=== PATIENT | female | born 1985 | race Hispanic/Latino ===

== ENCOUNTER 2023-06-26 11:57 | Emergency (ER) | payer BC, OTHER ==
[~2023-06-26] VITALS: Ht 152.4 cm; Wt 63.5 kg
[2023-06-26 12:51] LABS: APPEARANCE,URINE CLOUDY (CLEAR); BILIRUBIN,URINE NEGATIVE (NEGATIVE); COLOR,URINE YELLOW (YELLOW); GLUCOSE, URINE (UA) NEGATIVE (NEGATIVE); KETONES,URINE NEGATIVE (NEGATIVE); LEUKOCYTE ESTERASE ,URINE NEGATIVE Leu/uL (NEGATIVE); NITRATE,URINE 2+ (NEGATIVE); OCCULT BLOOD,URINE NEGATIVE (NEGATIVE); PH,URINE 6.5 (5.0-8.0); PROTEIN,URINE 10 mg/dL (NEGATIVE)
[2023-06-26 12:58] LABS: ADD UA MICROSCOPIC YES
[2023-06-26 13:00] LABS: BACTERIA,URINE MANY /HPF (None Seen); MUCUS,URINE RARE LPF (None Seen); RBC,URINE 0-1 /HPF (0-1); SQUAMOUS EPITHELIAL CELL,UR MANY /HPF (0-2)
[2023-06-26 13:10] LABS: BASOPHILS # (AUTO) 0.06 K/uL (0.00-0.20); BASOPHILS % (AUTO) 0.8 % (0.0-5.0); EOSINOPHILS # (AUTO) 0.14 K/uL (0.00-0.70); EOSINOPHILS % (AUTO) 1.9 % (0.0-8.0); HEMATOCRIT 36.7 % (36-48); IMMATURE GRANULOCYTE ABSOLUTE 0.02 K/uL (0-1); LYMPHOCYTES # (AUTO) 3.1 K/uL (1.0-4.8); LYMPHOCYTES % (AUTO) 40.9 % (21.0-51.0); MEAN CORPUSCULAR HEMOGLOBIN 31.8 pg (27.0-33.0); MEAN CORPUSCULAR HGB CONC 35.1 g/dL (32.0-36.0); MEAN CORPUSCULAR VOLUME 90.4 fL (79-99); MONOCYTES # (AUTO) 0.5 K/uL (0.1-1.0); MONOCYTES % (AUTO) 6.1 % (3.0-13.0); NEUTROPHILS # (AUTO) 3.8 K/uL (1.8-7.7); PLATELET COUNT (AUTO) 132 K/uL (130-400); RED BLOOD CELL COUNT(AUTO) 4.06 MIL/uL (4.00-5.50); RED CELL DISTRIBUTION WIDTH 13.9 % (11.0-15.5); WHITE BLOOD COUNT (AUTO) 7.5 K/uL (4.8-10.8)
[2023-06-26] MEDS: MORPHINE 4 MG SYG IVP ONE (13:15)
[2023-06-26] MEDS: PROMETHAZINE HCL 25 MG/ML 1ML AMPULE IM ONE (13:16)
[2023-06-26 13:24] LABS: CREATININE 0.7 mg/dL (0.5-1.0); POTASSIUM 3.8 mmol/L (3.5-5.1)
[2023-06-26 13:28] LABS: TOTAL PROTEIN, SERUM 7.4 g/dL (6.0-8.3)
[2023-06-26 13:30] LABS: INR <= 0.93 (0.85-1.15); PROTHROMBIN TIME 10.9 SEC (9.6-11.6)
[2023-06-26 13:31] LABS: PARTIAL THROMBOPLASTIN TIME 27.1 SEC (26.3-35.5)
[2023-06-26 15:49] VITALS: BP 106/74; PULSE 65; RESP 14; O2SAT 98
== END 2023-06-26 17:05 | disposition home or self-care (01) ==
LOC: EDH 11:57
DX: R10.11 Right upper quadrant pain (principal); R11.2 Nausea with vomiting, unspecified; F41.9 Anxiety disorder, unspecified; Z90.49 Acquired absence of other specified parts of digestive tract; Z90.710 Acquired absence of both cervix and uterus; Z88.5 Allergy status to narcotic agent; Z88.8 Allergy status to other drugs, medicaments and biological substances; Z98.890 Other specified postprocedural states
CPT/HCPCS: 99285; 74176; 96374; 82248; 80053; 83690; 85025; 85610; 85730; 87077; 87088; 87186; 81001; 36415; 96372; J2550; J2270

== ENCOUNTER 2023-06-28 15:46 | Inpatient (IN) | payer OTHER ==
[~2023-06-28] VITALS: Ht 152.4 cm; Wt 62.1 kg
[2023-06-28] MEDS ORDERED: ACETAMINOPHEN 325 MG TAB PO PRN ×2 (17:30)
[2023-06-28 17:56] LABS: BASOPHILS # (AUTO) 0.05 K/uL (0.00-0.20); BASOPHILS % (AUTO) 0.7 % (0.0-5.0); EOSINOPHILS # (AUTO) 0.14 K/uL (0.00-0.70); IMMATURE GRANULOCYTE ABSOLUTE 0.02 K/uL (0-1); LYMPHOCYTES # (AUTO) 3.1 K/uL (1.0-4.8); LYMPHOCYTES % (AUTO) 43.1 % (21.0-51.0); MEAN CORPUSCULAR HEMOGLOBIN 31.4 pg (27.0-33.0); MEAN CORPUSCULAR VOLUME 89.8 fL (79-99); MONOCYTES # (AUTO) 0.4 K/uL (0.1-1.0); MONOCYTES % (AUTO) 4.9 % (3.0-13.0); NEUTROPHILS # (AUTO) 3.5 K/uL (1.8-7.7); PLATELET COUNT (AUTO) 141 K/uL (130-400); RED BLOOD CELL COUNT(AUTO) 4.23 MIL/uL (4.00-5.50); RED CELL DISTRIBUTION WIDTH 13.9 % (11.0-15.5); WHITE BLOOD COUNT (AUTO) 7.2 K/uL (4.8-10.8)
[2023-06-28 18:17] LABS: ALBUMIN 3.2 g/dL (3.5-5.0); BILIRUBIN,TOTAL 1.3 mg/dL (0.2-1.0); CREATININE 0.7 mg/dL (0.5-1.0); POTASSIUM 3.7 mmol/L (3.5-5.1)
[2023-06-28] MEDS: 0.9%NACL 1000ML 1,000 ML IV SCH (18:17)
[2023-06-28] MEDS: PROMETHAZINE HCL 25 MG/ML 1ML AMPULE IM PRN (18:18)
[2023-06-28] MEDS: HYDROMORPHONE 0.5 MG SYG (0.5MG/0.5ML) IVP PRN (18:19)
[2023-06-28 18:42] LABS: INR 0.94 (0.85-1.15); PROTHROMBIN TIME 11.1 SEC (9.6-11.6)
[2023-06-28 18:43] LABS: PARTIAL THROMBOPLASTIN TIME 25.5 SEC (26.3-35.5)
[2023-06-28] MEDS: CEFTRIAXONE 1G VIAL IVPB SCH (18:58)
[2023-06-28 19:02] LABS: ERYTHROCYTE SEDIMENTATION RATE 52 MM/HR (0-20)
[2023-06-28] MEDS ORDERED: IOHEXOL-350 75 ML VIAL IV ONE (19:08)
[2023-06-28] MEDS: DiphenhydrAMINE HCL 50 MG/ML VIAL IV PRN (19:57)
[2023-06-28 21:15] VITALS: BP 132/87; PULSE 72; RESP 17
[2023-06-28] MEDS: 1/2 NS 1000ML 1,000 ML IV SCH (21:47)
[2023-06-28] MEDS: PANTOPRAZOLE 40 MG/VIAL IVP SCH (21:47)
[2023-06-28] MEDS ORDERED: PANT40TA PO (23:18)
[2023-06-28] MEDS ORDERED: ZOLP10TA2 PO (23:18)
[2023-06-28] MEDS ORDERED: ALPR1TAB7 PO (23:18)
[2023-06-28] MEDS ORDERED: PROM12.513 PO (23:18)
[2023-06-28] MEDS ORDERED: DIAZ2TAB PO (23:18)
[2023-06-28] MEDS ORDERED: TAMS-1 PO (23:18)
[2023-06-28] MEDS ORDERED: HYDR-4060 PO (23:18)
[2023-06-28] MEDS ORDERED: OXYB5TAB20 PO (23:18)
[2023-06-29] VITALS (23 sets, daily range): BP systolic 102–137; BP diastolic 55–89; PULSE 66–94; RESP 15–26; O2SAT 97
[2023-06-29 03:55] LABS: APPEARANCE,URINE CLEAR (CLEAR); BILIRUBIN,URINE NEGATIVE (NEGATIVE); COLOR,URINE LIGHT-YELLOW (YELLOW); GLUCOSE, URINE (UA) NEGATIVE (NEGATIVE); KETONES,URINE NEGATIVE (NEGATIVE); LEUKOCYTE ESTERASE ,URINE NEGATIVE Leu/uL (NEGATIVE); NITRATE,URINE NEGATIVE (NEGATIVE); OCCULT BLOOD,URINE NEGATIVE (NEGATIVE); PH,URINE 7.5 (5.0-8.0); PROTEIN,URINE NEGATIVE (NEGATIVE); UROBILINOGEN,URINE 0.2 mg/dL (0.2-1.0)
[2023-06-29 04:05] LABS: ADD UA MICROSCOPIC NO
[2023-06-29 04:06] LABS: BASOPHILS # (AUTO) 0.04 K/uL (0.00-0.20); BASOPHILS % (AUTO) 0.5 % (0.0-5.0); EOSINOPHILS # (AUTO) 0.16 K/uL (0.00-0.70); HEMATOCRIT 36.3 % (36-48); IMMATURE GRANULOCYTE ABSOLUTE 0.02 K/uL (0-1); LYMPHOCYTES % (AUTO) 50.2 % (21.0-51.0); MEAN CORPUSCULAR HGB CONC 34.4 g/dL (32.0-36.0); MEAN CORPUSCULAR VOLUME 92.8 fL (79-99); MONOCYTES # (AUTO) 0.5 K/uL (0.1-1.0); MONOCYTES % (AUTO) 5.8 % (3.0-13.0); NEUTROPHILS # (AUTO) 3.2 K/uL (1.8-7.7); NEUTROPHILS % (AUTO) 41.2 % (40.0-77.0); PLATELET COUNT (AUTO) 130 K/uL (130-400); RED BLOOD CELL COUNT(AUTO) 3.91 MIL/uL (4.00-5.50); RED CELL DISTRIBUTION WIDTH 13.8 % (11.0-15.5); WHITE BLOOD COUNT (AUTO) 7.9 K/uL (4.8-10.8)
[2023-06-29 04:28] LABS: ALBUMIN 2.8 g/dL (3.5-5.0); BILIRUBIN,TOTAL 1.3 mg/dL (0.2-1.0); CREATININE 0.7 mg/dL (0.5-1.0); POTASSIUM 3.7 mmol/L (3.5-5.1)
[2023-06-29] MEDS ORDERED: MAGNESIUM 2GM PREMIX 50ML 50 ML IV PRN (06:30)
[2023-06-29] MEDS ORDERED: POTASSIUM CHLORIDE 20MEQ/100ML 100 ML IV PRN (06:30)
[2023-06-29 07:18] LABS: INR 0.95 (0.85-1.15); PROTHROMBIN TIME 11.3 SEC (9.6-11.6)
[2023-06-29 07:19] LABS: PARTIAL THROMBOPLASTIN TIME 25.8 SEC (26.3-35.5)
[2023-06-29] MEDS ORDERED: PROPOFOL 10 MG/ML 20ML VIAL IV ONE (15:30)
[2023-06-30] VITALS (7 sets, daily range): BP systolic 100–139; BP diastolic 53–94; PULSE 77–95; RESP 16–18; O2SAT 97
[2023-06-30 04:59] LABS: BASOPHILS # (AUTO) 0.04 K/uL (0.00-0.20); BASOPHILS % (AUTO) 0.7 % (0.0-5.0); EOSINOPHILS # (AUTO) 0.13 K/uL (0.00-0.70); EOSINOPHILS % (AUTO) 2.1 % (0.0-8.0); HEMATOCRIT 33.1 % (36-48); IMMATURE GRANULOCYTE ABSOLUTE 0.02 K/uL (0-1); LYMPHOCYTES # (AUTO) 2.8 K/uL (1.0-4.8); LYMPHOCYTES % (AUTO) 46.2 % (21.0-51.0); MEAN CORPUSCULAR HEMOGLOBIN 31.9 pg (27.0-33.0); MEAN CORPUSCULAR HGB CONC 35.3 g/dL (32.0-36.0); MEAN CORPUSCULAR VOLUME 90.2 fL (79-99); MONOCYTES # (AUTO) 0.4 K/uL (0.1-1.0); MONOCYTES % (AUTO) 5.9 % (3.0-13.0); NEUTROPHILS # (AUTO) 2.7 K/uL (1.8-7.7); NEUTROPHILS % (AUTO) 44.8 % (40.0-77.0); PLATELET COUNT (AUTO) 111 K/uL (130-400); RED BLOOD CELL COUNT(AUTO) 3.67 MIL/uL (4.00-5.50); RED CELL DISTRIBUTION WIDTH 13.9 % (11.0-15.5); WHITE BLOOD COUNT (AUTO) 6.1 K/uL (4.8-10.8)
[2023-06-30 05:09] LABS: INR <= 0.93 (0.85-1.15)
[2023-06-30] MEDS ORDERED: TACR1 PO (05:16)
[2023-06-30] MEDS ORDERED: PRED-775 PO (05:16)
[2023-06-30] MEDS ORDERED: MYCO500T5 PO (05:16)
[2023-06-30] MEDS ORDERED: TACR.5 PO (05:16)
[2023-06-30 05:19] LABS: ALBUMIN 2.5 g/dL (3.5-5.0); CREATININE 0.7 mg/dL (0.5-1.0); POTASSIUM 3.5 mmol/L (3.5-5.1); TOTAL PROTEIN, SERUM 6.6 g/dL (6.0-8.3)
[2023-06-30] MEDS: POTASSIUM CHLORIDE 10% ELIXIR 20 MEQ/15 ML UDCUP PO PRN (06:38)
[2023-06-30] MEDS: TACROLIMUS 1 MG CAPSULE PO SCH (09:00)
[2023-06-30] MEDS: MYCOPHENOLATE MOFETIL 250 MG CAPSULE PO SCH (09:00)
[2023-06-30] MEDS: PREDNISONE 10 MG TABLET PO SCH (09:00)
[2023-06-30] MEDS: LORAZEPAM 2 MG/ML 1 ML VIAL IVP PRN (10:24)
[2023-06-30] MEDS ORDERED: GADOTERATE MEGLUMINE 10 MMOL/20 ML VIAL IV ONE (11:48)
[2023-06-30] MEDS: ZOLPIDEM TARTRATE 5 MG TAB PO SCH (20:18)
[2023-06-30] MEDS: TACROLIMUS 0.5 MG CAPSULE PO SCH (20:18)
[2023-06-30] MEDS: DIAZEPAM 2 MG TAB PO SCH (20:18)
[2023-07-01] VITALS (9 sets, daily range): BP systolic 102–128; BP diastolic 56–86; PULSE 71–96; RESP 14–18; O2SAT 95–97
[2023-07-02] VITALS (8 sets, daily range): BP systolic 119–152; BP diastolic 76–97; PULSE 85–108; RESP 17–20; O2SAT 98–99
[2023-07-02 05:20] LABS: BASOPHILS # (AUTO) 0.04 K/uL (0.00-0.20); BASOPHILS % (AUTO) 0.5 % (0.0-5.0); EOSINOPHILS # (AUTO) 0.17 K/uL (0.00-0.70); HEMATOCRIT 35.5 % (36-48); IMMATURE GRANULOCYTE ABSOLUTE 0.03 K/uL (0-1); LYMPHOCYTES # (AUTO) 4.3 K/uL (1.0-4.8); LYMPHOCYTES % (AUTO) 49.7 % (21.0-51.0); MEAN CORPUSCULAR HEMOGLOBIN 31.5 pg (27.0-33.0); MEAN CORPUSCULAR HGB CONC 34.6 g/dL (32.0-36.0); MONOCYTES # (AUTO) 0.5 K/uL (0.1-1.0); MONOCYTES % (AUTO) 6.2 % (3.0-13.0); NEUTROPHILS # (AUTO) 3.6 K/uL (1.8-7.7); NEUTROPHILS % (AUTO) 41.3 % (40.0-77.0); PLATELET COUNT (AUTO) 136 K/uL (130-400); RED CELL DISTRIBUTION WIDTH 13.8 % (11.0-15.5); WHITE BLOOD COUNT (AUTO) 8.6 K/uL (4.8-10.8)
[2023-07-02 05:44] LABS: ALBUMIN 2.8 g/dL (3.5-5.0); BILIRUBIN,TOTAL 0.9 mg/dL (0.2-1.0); CREATININE 0.6 mg/dL (0.5-1.0); MAGNESIUM 1.8 mg/dL (1.80-2.40); POTASSIUM 3.4 mmol/L (3.5-5.1); TOTAL PROTEIN, SERUM 7.3 g/dL (6.0-8.3)
[2023-07-02] MEDS ORDERED: POTASSIUM CHLORIDE 20MEQ/100ML 100 ML IV PRN (07:00)
[2023-07-02] MEDS ORDERED: POTASSIUM CHLORIDE 10% ELIXIR 20 MEQ/15 ML UDCUP PO PRN (07:00)
[2023-07-02] MEDS ORDERED: KCL 20 MEQ ERTAB PO PRN (07:00)
[2023-07-03] VITALS: BP 146/81; PULSE 94; RESP 19
[2023-07-03 03:32] LABS: HEMATOCRIT 37.2 % (36-48); MEAN CORPUSCULAR HGB CONC 34.4 g/dL (32.0-36.0); RED CELL DISTRIBUTION WIDTH 13.4 % (11.0-15.5); WHITE BLOOD COUNT (AUTO) 10.8 K/uL (4.8-10.8)
[2023-07-03 03:35] LABS: ALBUMIN 2.9 g/dL (3.5-5.0); BILIRUBIN,TOTAL 0.9 mg/dL (0.2-1.0); CREATININE 0.8 mg/dL (0.5-1.0); POTASSIUM 3.7 mmol/L (3.5-5.1); TOTAL PROTEIN, SERUM 7.5 g/dL (6.0-8.3)
[2023-07-03 04:00] VITALS: BP 139/89; PULSE 95; RESP 19
[2023-07-03] MEDS ORDERED: DIPHENHYDRAMINE HCL 25 MG CAPSULE PO PRN (07:30)
[2023-07-03 08:00] VITALS: BP 108/67; PULSE 75; RESP 19; O2SAT 99
== END 2023-07-03 10:10 | disposition home or self-care (01) | DRG 689 ==
LOC: EDH 15:46 → EDHIP 15:47 → 3DH 17:37
PROVIDERS: ADMIT Internal Medicine; ATTEND Internal Medicine
PROC: 0DB68ZX Excision of Stomach, Via Natural or Artificial Opening Endoscopic, Diagnostic (ICD-10-PCS; principal; 2023-06-29)
DX: N39.0 Urinary tract infection, site not specified (principal); K29.51 Unspecified chronic gastritis with bleeding; D84.821 Immunodeficiency due to drugs; Z94.4 Liver transplant status; E86.0 Dehydration; Z79.60 Long term (current) use of unspecified immunomodulators and immunosuppressants; Z90.710 Acquired absence of both cervix and uterus
CPT/HCPCS: 36415; 43239; 71045; 71260; 72197; 74177; 74183; 76700; 80053; 81003; 82150; 83605; 83690; 83735; 85025; 85027; 85610; 85651; 85730; 86140; 87040; 88305; 88312; 93005; C1894; C9113; G0378; J0696; J1170; J1200; J2060; J2550; J2704; J7507; J7512; J7517; Q9967; A4620; A9575; C1750; J3490

== ENCOUNTER 2024-01-29 03:42 | Observation (INO) | payer MEDICAID, OTHER ==
[~2024-01-29] VITALS: Ht 152.4 cm; Wt 63.5 kg
[~2024-01-29 03:42] MED LIST: ALPR1TAB7 PO; DIAZ2TAB PO; HYDR-4060 PO; MYCO500T5 PO; PANT40TA PO; PRED-775 PO; TACR.5 PO; TACR1 PO; ZOLP10TA2 PO
[2024-01-29 04:25] LABS: BASOPHILS # (AUTO) 0.05 K/uL (0.00-0.20); BASOPHILS % (AUTO) 0.7 % (0.0-5.0); EOSINOPHILS # (AUTO) 0.13 K/uL (0.00-0.70); EOSINOPHILS % (AUTO) 1.8 % (0.0-8.0); HEMATOCRIT 37.3 % (36-48); IMMATURE GRANULOCYTE ABSOLUTE 0.02 K/uL (0-1); LYMPHOCYTES # (AUTO) 1.9 K/uL (1.0-4.8); LYMPHOCYTES % (AUTO) 26.3 % (21.0-51.0); MEAN CORPUSCULAR HEMOGLOBIN 31.5 pg (27.0-33.0); MEAN CORPUSCULAR HGB CONC 34.9 g/dL (32.0-36.0); MEAN CORPUSCULAR VOLUME 90.3 fL (79-99); MONOCYTES # (AUTO) 0.4 K/uL (0.1-1.0); MONOCYTES % (AUTO) 5.2 % (3.0-13.0); NEUTROPHILS # (AUTO) 4.7 K/uL (1.8-7.7); NEUTROPHILS % (AUTO) 65.7 % (40.0-77.0); PLATELET COUNT (AUTO) 118 K/uL (130-400); RED BLOOD CELL COUNT(AUTO) 4.13 MIL/uL (4.00-5.50); RED CELL DISTRIBUTION WIDTH 12.8 % (11.0-15.5); WHITE BLOOD COUNT (AUTO) 7.1 K/uL (4.8-10.8)
[2024-01-29 04:31] LABS: ALBUMIN 3.1 g/dL (3.5-5.0); BILIRUBIN,DIRECT 0.6 mg/dL (0.0-0.3); BILIRUBIN,TOTAL 1.3 mg/dL (0.2-1.0); CREATININE 0.6 mg/dL (0.5-1.0); POTASSIUM 4.1 mmol/L (3.5-5.1); TOTAL PROTEIN, SERUM 7.1 g/dL (6.0-8.3)
[2024-01-29] MEDS: 0.9%NACL 1000ML 1,000 ML IV ONE (04:40)
[2024-01-29] MEDS: hydroMORPHone 0.5 MG SYG (0.5MG/0.5ML) IVP ONE (04:40)
[2024-01-29] MEDS: PANTOPrazole 40 MG/VIAL IVP ONE (04:41)
[2024-01-29] MEDS: PROMETHAZINE HCL 25 MG/ML 1ML AMPULE IM ONE (04:41)
[2024-01-29 04:50] LABS: INR 0.96 (0.85-1.15); PROTHROMBIN TIME 10.8 SEC (9.6-11.6)
--- NOTE | 2024-01-29 05:03 | ERN ---
ED Note History of Present Illness Stated Complaint: HEMATEMESIS, BLOODY STOOL ONSET YESTERDAY Chief Complaint: Bloody Stool Time Seen by MD: 03:44 Dictation: This is a 38-year-old female who came into the emergency room with a severe lower back pain radiating to the right lower quadrant area and also hematemesis. She reported also bloody stool that has been going on for the past 24 hours. No history of any fevers chills or rigors per please note that the patient has been on chronic antirejection medications for liver transplantation. She has received her original liver in 2008 and since last year she is thought to be chronic rejection. 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 I saw the picture on her cell phone of a small amount of bright red blood after emesis in the toilet at her home Temperature 96 pulse 72 respirations 16 blood pressure 128/81 with a pulse ox imetry of 97% on room air Allergies: Coded Allergies: ketorolac (Unverified Allergy, Unknown, 06/26/23) ondansetron (Unverified Allergy, Unknown, 06/26/23) tramadol (Unverified Allergy, Unknown, 06/26/23) Home Meds Reported Medications Mycophenolate Mofetil (Mycophenolate Mofetil) 500 Mg Tablet, 2 TAB PO BID 06/30/23 Prednisone (Deltasone/Orasone [Bulk]) 10 Mg Tab, 3 TAB PO DAILY 06/30/23 Tacrolimus Anhydrous (Prograf/Fk-506) 0.5 Mg Cap, 1 CAP PO HS 06/30/23 Tacrolimus Anhydrous (Prograf/Fk-506) 1 Mg Cap, 1 CAP PO DAILY 06/30/23 Hydrocodone/Acetaminophen (Hydrocodon-Acetaminophen 5-325) 5 Mg-325 Mg Tablet, 1 EACH PO QID PRN for PAIN LEVEL 4 TO 6, TAB 06/28/23 Zolpidem Tartrate (Ambien) 10 Mg Tablet, 10 MG PO HS, TAB 06/28/23 Diazepam (Valium) 2 Mg Tablet, 2 MG PO HS, TAB 06/28/23 Pantoprazole Sodium (Protonix) 40 Mg Tablet.dr, 40 MG PO DAILY, TAB 06/28/23 Alprazolam (Alprazolam) 1 Mg Tablet, 1 MG PO TID PRN for ANXIETY, TAB 06/28/23 Past Medical History Past Medical History: Liver Disease Additional Past Medical Hx: ANTI REJECTION MEDS FOR LIVER Surgical History: Hysterectomy Surgical History Other: LIVER TRANSPLANT Family History: Negative Social History: Negative History: Not Applicable : 2 Para: 2 Aborts: 0 RN Note Reviewed/Agreed w/PFSH: Yes Review of System Dictation Constitutional: Negative for fever,chills, and weight loss Eyes: Negative for injury, pain,redness, and discharge ENT: Negative for injury,pain or swelling Cardiovascular: Negative for chest pain, palpitations, and edema Respiratory: Negative for shortness of breath, cough, and wheezing, Abdomen/GI: Positive for abdominal pain, and hematemesis and melena denies nausea, vomiting, diarrhea, and constipation Back: Negative for injury and positive for lower back pain radiating to the right lower quadrant anteriorly : Negative for injury, bleeding and discharge MS/Extremity: Negative for injury and deformity Skin: Negative for rash, and discoloration Neuro: Negative for headache, weakness, numbness, tingling, and seizure Psych: Negative for suicide ideation, homicidal ideation, and hallucinations Initial Vital Sign VS Vital Signs Date Time Temp Pulse Resp B/P (MAP) Pulse Ox O2 Delivery O2 Flow Rate FiO2 01/29/24 03:43 96.8 72 16 128/81 97 Room Air* 0 21 Physical Exam Dictation General: awake, alert, NAD very uncomfortable due to pain in the right lower back area Head/Face: Normocephalic, atraumatic Eyes: PERRL, EOMI, vision at baseline ENT: oral cavity clear, TMs clear, no signs of infection Neck: Trachea midline, supple, no nuchal rigidity Cardiovascular: RRR, normal S1/S2, No MRGs, no JVD Respiratory: CTAB, no respiratory distress, No rales or wheezes Abdomen: Soft, non-tender, non-distended, normal bowel sounds, no guarding or rebound. Skin: Warm, dry, normal turgor, no rash MS/Extremity: Pulses equal, no cyanosis, neurovascular intact, FROM Neuro: COAx4, GCS 15, strength 5/5, CN 2-12 intact, normal cerebellar exam, n ormal gait, Psych: Normal behavior, mood, and affect normal Extremities-trace edema without any palpable cords, Homans sign is negative Results (Laboratory/Radiology) Laboratory/Radiology Laboratory Tests Test 01/29/24 04:07 01/29/24 04:56 White Blood Count 7.1 K/uL (4.8-10.8) Red Blood Count 4.13 MIL/uL (4.00-5.50) Hemoglobin 13.0 g/dL (12.0-16.0) Hematocrit 37.3 % (36-48) Mean Corpuscular Volume 90.3 fL (79-99) Mean Corpuscular Hemoglobin 31.5 pg (27.0-33.0) Mean Corpuscular Hemoglobin Concent 34.9 g/dL (32.0-36.0) Red Cell Distribution Width 12.8 % (11.0-15.5) Platelet Count 118 K/uL (130-400) L Mean Platelet Volume 10.0 fL (7.5-10.5) Immature Granulocyte % (Auto) 0.3 % (0-1) Neutrophils (%) (Auto) 65.7 % (40.0-77.0) Lymphocytes (%) (Auto) 26.3 % (21.0-51.0) Monocytes (%) (Auto) 5.2 % (3.0-13.0) Eosinophils (%) (Auto) 1.8 % (0.0-8.0) Basophils (%) (Auto) 0.7 % (0.0-5.0) Neutrophils # (Auto) 4.7 K/uL (1.8-7.7) Lymphocytes # (Auto) 1.9 K/uL (1.0-4.8) Monocytes # (Auto) 0.4 K/uL (0.1-1.0) Eosinophils # (Auto) 0.13 K/uL (0.00-0.70) Basophils # (Auto) 0.05 K/uL (0.00-0.20) Absolute Immature Granulocyte (auto 0.02 K/uL (0-1) Nucleated Red Blood Cells 0.0 % (0.0-0.19) Prothrombin Time 10.8 SEC (9.6-11.6) Prothromb Time International Ratio 0.96 (0.85-1.15) Activated Partial Thromboplast Time 27.0 SEC (26.3-35.5) Sodium Level 137 mmol/L (136-145) Potassium Level 4.1 mmol/L (3.5-5.1) Chloride Level 102 mmol/L (101-111) Carbon Dioxide Level 31 mmol/L (21-32) Blood Urea Nitrogen 6 mg/dL (7-18) L Creatinine 0.6 mg/dL (0.5-1.0) Glomerular Filtration Rate Calc 117 mL/min (>90) Random Glucose 97 mg/dL (70-105) Total Calcium 9.2 mg/dL (8.5-10.1) Total Bilirubin 1.3 mg/dL (0.2-1.0) H Direct Bilirubin 0.6 mg/dL (0.0-0.3) H Aspartate Amino Transf (AST/SGOT) 76 U/L (10-37) H Alanine Aminotransferase (ALT/SGPT) 46 U/L (12-78) Alkaline Phosphatase 368 U/L (50-136) H Total Protein 7.1 g/dL (6.0-8.3) Albumin 3.1 g/dL (3.5-5.0) L Stool Occult Blood NEGATIVE (NEGATIVE) Labs Reviewed?: Yes ED Course ED Course Orders Procedure Category Date Status Time Cbc With Differential LAB 01/29/24 Complete 03:52 Basic Metabolic Panel LAB 01/29/24 Complete 03:52 Pt And Ptt LAB 01/29/24 Complete 04:05 Hepatic Function Panel LAB 01/29/24 Complete 04:07 Promethazine Hcl PHA 01/29/24 Complete (Phenergan) 04:30 Hydromorphone 0.5mg PHA 01/29/24 Complete Syg (Dilaudid 0.5mg 04:30 Type And Screen BBK 01/29/24 In Process 04:14 Urinalysis Profile LAB 01/29/24 Logged 04:14 Occult Blood Stool LAB 01/29/24 Complete Single Only 04:14 0.9%Nacl 1000ml (Ns PHA 01/29/24 In Process 1000ml) 04:30 Pantoprazole 40mg Inj PHA 01/29/24 Complete (Protonix 40mg Inj 04:30 Us Abdominal Ruq\Ltd US 01/29/24 Logged 04:50 Edm Admit Bridge Order ADM 01/29/24 Transmitted 05:55 Admit Orders ADM 01/29/24 Transmitted 05:55 Current Medications Medications (Trade) Dose Ordered Sig/Coral Route PRN Reason Start Time Stop Time Status Last Admin Dose Admin Hydromorphone HCl (DiLAUDid 0.5MG INJ) 0.5 mg ONCE ONCE IVP 01/29/24 04:30 01/29/24 04:31 DC 01/29/24 04:40 Pantoprazole Sodium (PROTonix 40MG INJ) 80 mg ONCE ONCE IVP 01/29/24 04:30 01/29/24 04:31 DC 01/29/24 04:41 Promethazine HCl (Phenergan) 25 mg ONCE ONCE IM 01/29/24 04:30 01/29/24 04:31 DC 01/29/24 04:41 Sodium Chloride 1,000 ml @ 125 mls/hr ONCE ONCE IV 01/29/24 04:30 01/29/24 12:29 01/29/24 04:40 Vital Signs Date Time Temp Pulse Resp B/P (MAP) Pulse Ox O2 Delivery O2 Flow Rate FiO2 01/29/24 03:44 96.8 72 16 128/81 97 Room Air 0 01/29/24 03:43 96.8 72 16 128/81 97 Room Air* 0 21 We will perform diagnostic labs, advanced imaging and administer medications according to the patient's complaint. Once the results are available, will review and personally interpreted the labs to rule out any acute life- threatening emergency the trach require immediate intervention and treatment. I will then re-evaluate the patient after treatment and diagnostic exams have return to determine whether the patient requires any further testing, can safely be discharged home or need further admission to hospital for additional treatment and evaluation. Labs reviewed CBC was within normal limits BNP 7 acceptable with potassium of 4 LFTs abnormal with an alkaline phosphatase of 368 ALT 46 AST 76 bilirubin 1.3 Ultrasound abdomen to evaluate for liver and portal hypertension is pending Gentle hydration, ppi and antiemetics. Since hemoglobin is maintained without any obvious sign of hemodynamic compromise, we will hold off on the Sandostatin for now I recommended admission to the hospital for management of GI bleed serial hemoglobins and likely GI consultation for further evaluation including endoscopy or biliary tree evaluation as deemed necessary. Coagulation profile is pending at this time. Patient is agreeable 6:00 a.m. patient accepted [facility] for admission and management Medical Decision Making MDM MDM: Differential diagnosis: Variceal bleeding with possible portal hypertension, peptic ulcer disease, coagulopathy, chronic rejection, chronic portal vein thrombosis Rationale: Tests considered and ordered secondary to shared decision making include: labs, ECG and radiology Previous outside records reviewed: Old ER visits. Risk of complication and/or morbidity or mortality of patient management: None Medications-Per medication reconciliation Need for hospitalization: Patient does meet criteria for hospitalization. Need for emergency major/minor surgery: No There are no social concerns with this patient. Prescription drug management Prescriptions will include symptomatic care Patient's prior external medical records from other ER visits were reviewed by me as indicated. Prior testing and results from previous visits were reviewed. Prior tests were taken into account with medical decision making and resource utilization, independent historian/historians were used to obtain complete medical history. I independently interpreted the test that were performed, results were reviewed by me and considered findings on radiology if ordered. Medical management and examination interpretation discussions were had by me with other qualified healthcare professionals as indicated for the patient's care. Problem List Problem List: (1) GI bleed (2) Status post liver transplant (3) Chronic rejection of liver transplant (4) Abnormal liver function tests DX & DISP Disposition: Inpatient Decision to Admit Time: 05:02 Departure Impression: Primary Impression: GI bleed Additional Impressions: Status post liver transplant, Chronic rejection of liver transplant, Abnormal liver function tests Condition: Stable Additional Instructions: Patient was informed of all the diagnostic labs and procedures conducted in the emergency room today and demonstrated understanding of the results. I personally reviewed and interpreted all the diagnostic exams performed in the ER today. The patient will be admitted to the hospital for further treatment and evaluation. Disposition-admit to facility Condition-stable/guarded Course-uncertain at this time Pain status-decreased Assessment-exam unchanged Admission Certification- I certify that the patients status is appropriate and is based on my best clinical judgment and the patient's condition as documented in the medical records Referrals: DIPAK CRAWLEY MD (PCP) BELIA SOLER MD Jan 29, 2024 05:03
[2024-01-29 06:41] LABS: APPEARANCE,URINE CLOUDY (CLEAR); BILIRUBIN,URINE NEGATIVE (NEGATIVE); COLOR,URINE LIGHT-YELLOW (YELLOW); GLUCOSE, URINE (UA) NEGATIVE (NEGATIVE); KETONES,URINE NEGATIVE (NEGATIVE); LEUKOCYTE ESTERASE ,URINE NEGATIVE Leu/uL (NEGATIVE); NITRATE,URINE NEGATIVE (NEGATIVE); OCCULT BLOOD,URINE NEGATIVE (NEGATIVE); PROTEIN,URINE NEGATIVE (NEGATIVE); UROBILINOGEN,URINE 0.2 mg/dL (0.2-1.0)
[2024-01-29 06:50] LABS: ADD UA MICROSCOPIC YES
[2024-01-29 06:53] LABS: BACTERIA,URINE RARE /HPF (None Seen); OTHER CASTS, URINE 1 /LPF (None Seen); RBC,URINE 0-1 /HPF (0-1); SQUAMOUS EPITHELIAL CELL,UR MOD /HPF (0-2)
[2024-01-29] MEDS: 1/2 NS 1000ML 1,000 ML IV SCH (06:57)
[2024-01-29] MEDS: PANTOPrazole 40 MG/VIAL IVP SCH (08:23)
--- NOTE | 2024-01-29 09:04 | NUR ---
GI CONSULT:PATIENT REPORT GIVEN TO MARCELO SMITH
--- NOTE | 2024-01-29 09:05 | HMCIMG ---
US ABDOMINAL RUQ\E\LTD HISTORY: Liver transplant rejection COMPARISON: 06/28/2023 TECHNIQUE: Right upper quadrant abdominal ultrasound study was performed. FINDINGS: The study is limited due to overlying bowel gas. Pancreas is not well seen. Portal vein is patent with flow velocity of 23.3 cm/s. Liver measures 17.1 cm with lobulated contour. Liver is echogenic consistent with liver parenchymal disease. Gallbladder has been removed. Common duct measures 3 mm. Right kidney measures 11.1 x 4.7 x 5.7cm. No hydronephrosis is seen of the right kidney. IMPRESSION: 1. Post cholecystectomy. No ductal dilatation is seen. 2. No hydronephrosis is seen.
[2024-01-29] MEDS: hydroMORPHone 0.5 MG SYG (0.5MG/0.5ML) IVP PRN (11:46)
[2024-01-29] MEDS: PROMETHAZINE HCL 25 MG/ML 1ML AMPULE IM PRN (11:49)
--- NOTE | 2024-01-29 13:07 | CONS ---
GASTROENTEROLOGY CONSULTATION NOTE Date of Consultation: Jan 29, 2024 Time of Consultation: 13:07 History of Present Illness: This is a 38-year-old female who is known to services with past medical history of liver transplant due to autoimmune hepatitis. She is on antirejection meds for liver. She presented due to hematemesis and melena. Hemoglobin stable at 13 with a platelet count of 118 and INR of 0.96. LFTs elevated. Review of Systems: CONSTITUTIONAL: No malaise or change in sensation of wellbeing. ENMT: No rhinorrhea, otorrhea, sinus pain, ear ache. CARDIOVASCULAR: No angina, palpitations, orthopnea or paroxysmal dyspnea. RESPIRATORY: No SOB. GASTROINTESTINAL: No abdominal pain, nausea, vomiting, diarrhea, hematemesis, melena or change in the patient's habitual bowel movements consistency/number. GENITOURINARY: No dysuria, hematuria or change in bladder continence. MUSCULOSKELETAL: No new muscle pain or decrease in muscular strength. No new joint swelling, redness or tenderness. SKIN: No new rash. Past Medical History: Past Medical History Past Medical History: Liver Disease Additional Past Medical Hx: ANTI REJECTION MEDS FOR LIVER Surgical History: Hysterectomy Surgical History Other: LIVER TRANSPLANT Family History: Negative Social History: Negative Coded Allergies: ketorolac (Unverified Allergy, Unknown, 06/26/23) ondansetron (Unverified Allergy, Unknown, 06/26/23) tramadol (Unverified Allergy, Unknown, 06/26/23) Physical Exam: GEN: Awake, alert, oriented in person, time and place, and in no acute distress. HEENT: No sinus tenderness. Tympanic membranes were not examined. No rhinorrhea. Oral pharyngeal mucosa is pink, moist and within normal limits. Neck is supple with no cervical lymphadenopathy, thyromegaly or JVD. CHEST: Inspection, palpation and percussion of the chest were unremarkable. Lung auscultation revealed normal breath sounds bilaterally. CARDIAC: PMI is within normal limits. Heart sounds are regular. Normal S1, S2. No gallop or murmur. ABD: Soft, non-tender and not distended. No peritoneal signs on palpation. No organomegaly. Normal bowel sounds. EXT: No cyanosis or clubbing. No edema. SKIN: Intact. No rashes. JOINTS: No evidence of synovitis or acute arthritis. NEURO: Alert and oriented to name, place and person. Cranial nerve examination is unremarkable. No focal motor deficits. Normal speech. Gait is normal. Strength is normal. Vital Sign (Last 24 Hours) 01/29/24 01/29/24 07:24 10:44 Temp 97.9 Pulse 73 Resp 22 B/P (MAP) 104/62 Pulse Ox 97 O2 Delivery Room Air* O2 Flow Rate 0 FiO2 21 Laboratory: [ ] Laboratory: Test 01/29/24 06:15 01/29/24 04:56 01/29/24 04:07 Range/Units Urine Color LIGHT-YELLOW YELLOW Urine Appearance CLOUDY H CLEAR Urine pH 7.0 5.0-8.0 Urine Specific [place] 1.006 1.001-1.031 Urine Protein NEGATIVE NEGATIVE mg/dL Urine Glucose (UA) NEGATIVE NEGATIVE mg/dL Urine Ketones NEGATIVE NEGATIVE mg/dL Urine Occult Blood NEGATIVE NEGATIVE Urine Nitrate NEGATIVE NEGATIVE Urine Bilirubin NEGATIVE NEGATIVE mg/dL Urine Urobilinogen 0.2 0.2-1.0 mg/dL Urine Leukocyte Esterase NEGATIVE NEGATIVE Bessy/uL Urine RBC 0-1 0-1 /HPF Urine WBC 2-5 H 0-1 /HPF Urine Squamous Epithelial Cells MOD 0-2 /HPF Urine Bacteria RARE None Seen /HPF Urine Other Casts 1 None Seen /LPF Stool Occult Blood NEGATIVE NEGATIVE White Blood Count 7.1 4.8-10.8 K/uL Red Blood Count 4.13 4.00-5.50 MIL/uL Hemoglobin 13.0 12.0-16.0 g/dL Hematocrit 37.3 36-48 % Mean Corpuscular Volume 90.3 79-99 fL Mean Corpuscular Hemoglobin 31.5 27.0-33.0 pg Mean Corpuscular Hemoglobin Concent 34.9 32.0-36.0 g/dL Red Cell Distribution Width 12.8 11.0-15.5 % Platelet Count 118 L 130-400 K/uL Mean Platelet Volume 10.0 7.5-10.5 fL Immature Granulocyte % (Auto) 0.3 0-1 % Neutrophils (%) (Auto) 65.7 40.0-77.0 % Lymphocytes (%) (Auto) 26.3 21.0-51.0 % Monocytes (%) (Auto) 5.2 3.0-13.0 % Eosinophils (%) (Auto) 1.8 0.0-8.0 % Basophils (%) (Auto) 0.7 0.0-5.0 % Neutrophils # (Auto) 4.7 1.8-7.7 K/uL Lymphocytes # (Auto) 1.9 1.0-4.8 K/uL Monocytes # (Auto) 0.4 0.1-1.0 K/uL Eosinophils # (Auto) 0.13 0.00-0.70 K/uL Basophils # (Auto) 0.05 0.00-0.20 K/uL Absolute Immature Granulocyte (auto 0.02 0-1 K/uL Nucleated Red Blood Cells 0.0 0.0-0.19 % Prothrombin Time 10.8 9.6-11.6 SEC Prothromb Time International Ratio 0.96 0.85-1.15 Activated Partial Thromboplast Time 27.0 26.3-35.5 SEC Sodium Level 137 136-145 mmol/L Potassium Level 4.1 3.5-5.1 mmol/L Chloride Level 102 101-111 mmol/L Carbon Dioxide Level 31 21-32 mmol/L Blood Urea Nitrogen 6 L 7-18 mg/dL Creatinine 0.6 0.5-1.0 mg/dL Glomerular Filtration Rate Calc 117 >90 mL/min Random Glucose 97 70-105 mg/dL Total Calcium 9.2 8.5-10.1 mg/dL Total Bilirubin 1.3 H 0.2-1.0 mg/dL Direct Bilirubin 0.6 H 0.0-0.3 mg/dL Aspartate Amino Transf (AST/SGOT) 76 H 10-37 U/L Alanine Aminotransferase (ALT/SGPT) 46 12-78 U/L Alkaline Phosphatase 368 H 50-136 U/L Total Protein 7.1 6.0-8.3 g/dL Albumin 3.1 L 3.5-5.0 g/dL Current Medications Medications (Trade) Dose Ordered Sig/Coral Route PRN Reason Start Time Stop Time Status Last Admin Dose Admin Hydromorphone HCl (DiLAUDid 0.5MG INJ) 0.5 mg Q3H PRN IVP SEVERE PAIN (7-10) 01/29/24 07:30 02/03/24 07:29 01/29/24 11:46 0.5 MG Pantoprazole Sodium (PROTonix 40MG INJ) 40 mg BID IVP 01/29/24 09:00 02/28/24 08:59 01/29/24 08:23 40 MG Promethazine HCl (Phenergan) 25 mg Q6H PRN IM NAUSEA/VOMITING 01/29/24 07:30 02/28/24 07:29 01/29/24 11:49 25 MG Sodium Chloride 1,000 ml @ 125 mls/hr Q8H IV 01/29/24 06:00 02/28/24 05:59 01/29/24 06:57 125 MLS/HR Diagnostics / Radiology: [COPY/PASTE HERE IF NO REPORTS PLEASE DELETE SECTION] Assessment: Hematemesis Plan: 1. NPO 2. EGD in AM. I have discussed the risks, benefits, alternatives, and potential complications. Questions were answered and they agree to proceed. 3. Pantoprazole drip 80 mg IV bolus and then 8 mg/hr IV infusion for 72 hours 4. Octreotide 50 mcg IV bolus and then 50 mcg/hr IV infusion for 72 hours 5. Recommend checking Hg every 6 hours and transfuse to goal Hg >7. Please do not overtransfuse 6. Please contact our service if the patient has significant bleeding such as hematemesis and we can proceed sooner with the EGD Thanks you for allowing us to participate in the care of this patient! JIMI GATICA [employer] Jan 29, 2024 13:07
--- NOTE | 2024-01-29 15:18 | NUR ---
DCP: HOME Pt lives in home she owns with her minor son. Pt states she is active and driving, unemployed at this time. Mother Estrellita Patrick [phone] is ER contact. Pt uses no DME or in home care services. PCP is Kayla Del Castillo and uses [facility] for rx. Pt denies dc needs, will return home at dc Addendum: 01/29/24 at 1521 by CHEYANNE VERA Amended: Links added.
[2024-01-29 19:05] VITALS: O2SAT 93
[2024-01-29 20:00] VITALS: BP 117/75; PULSE 77; RESP 20; TEMP 98.6
[2024-01-29 21:18] LABS: HEMATOCRIT 35.3 % (36-48)
[2024-01-29] MEDS ORDERED: TACR1CAP10 PO ×2 (21:39)
[2024-01-29] MEDS ORDERED: HYDR-4068 PO (21:39)
[2024-01-29] MEDS ORDERED: DIAZ2TAB3 PO (21:39)
[2024-01-29] MEDS ORDERED: PRED10TA3 PO (21:39)
[2024-01-29] MEDS ORDERED: CHOL200013 PO (21:39)
[2024-01-29] MEDS ORDERED: MYCO500T PO (21:39)
--- NOTE | 2024-01-29 22:13 | HP ---
HISTORY AND PHYSICAL NOTE DATE OF CONSULTATION: 01/29/24 REASON FOR CONSULTATION: GI bleed HISTORY OF PRESENT ILLNESS: This is a 38-year-old female who came into the emergency room with a severe lower back pain radiating to the right lower quadrant area and also hematemesis. She reported also bloody stool that has been going on for the past 24 hours. No history of any fevers chills or rigors per please note that the patient has been on chronic antirejection medications for liver transplantation. She has received her original liver in 2008 and since last year she is thought to be chronic rejection. 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 I saw the picture on her cell phone of a small amount of bright red blood after emesis in the toilet at her home Temperature 96 pulse 72 respirations 16 blood pressure 128/81 with a pulse oximetry of 97% on room air Allergies: Coded Allergies: ketorolac (Unverified Allergy, Unknown, 06/26/23) ondansetron (Unverified Allergy, Unknown, 06/26/23) tramadol (Unverified Allergy, Unknown, 06/26/23) Home Meds Reported Medications Mycophenolate Mofetil (Mycophenolate Mofetil) 500 Mg Tablet, 2 TAB PO BID 06/30/23 Prednisone (Deltasone/Orasone [Bulk]) 10 Mg Tab, 3 TAB PO DAILY 06/30/23 Tacrolimus Anhydrous (Prograf/Fk-506) 0.5 Mg Cap, 1 CAP PO HS 06/30/23 Tacrolimus Anhydrous (Prograf/Fk-506) 1 Mg Cap, 1 CAP PO DAILY 06/30/23 Hydrocodone/Acetaminophen (Hydrocodon-Acetaminophen 5-325) 5 Mg-325 Mg Tablet, 1 EACH PO QID PRN for PAIN LEVEL 4 TO 6, TAB 06/28/23 Zolpidem Tartrate (Ambien) 10 Mg Tablet, 10 MG PO HS, TAB 06/28/23 Diazepam (Valium) 2 Mg Tablet, 2 MG PO HS, TAB 06/28/23 Pantoprazole Sodium (Protonix) 40 Mg Tablet.dr, 40 MG PO DAILY, TAB 06/28/23 Alprazolam (Alprazolam) 1 Mg Tablet, 1 MG PO TID PRN for ANXIETY, TAB 06/28/23 Past Medical History Past Medical History: Liver Disease Additional Past Medical Hx: ANTI REJECTION MEDS FOR LIVER Surgical History: Hysterectomy Surgical History Other: LIVER TRANSPLANT Family History: Negative Social History: Negative History: Not Applicable : 2 Para: 2 Aborts: 0 RN Note Reviewed/Agreed w/PFSH: Yes Review of System Dictation Constitutional: Negative for fever,chills, and weight loss Eyes: Negative for injury, pain,redness, and discharge ENT: Negative for injury,pain or swelling Cardiovascular: Negative for chest pain, palpitations, and edema Respiratory: Negative for shortness of breath, cough, and wheezing, Abdomen/GI: Positive for abdominal pain, and hematemesis and melena denies nausea, vomiting, diarrhea, and constipation Back: Negative for injury and positive for lower back pain radiating to the right lower quadrant anteriorly : Negative for injury, bleeding and discharge MS/Extremity: Negative for injury and deformity Skin: Negative for rash, and discoloration Neuro: Negative for headache, weakness, numbness, tingling, and seizure Psych: Negative for suicide ideation, homicidal ideation, and hallucinations ALLERGIES: Coded Allergies: ketorolac (Unverified Allergy, Unknown, 06/26/23) ondansetron (Unverified Allergy, Unknown, 06/26/23) tramadol (Unverified Allergy, Unknown, 06/26/23) HOME MEDS: Reported Medications Hydrocodone/Acetaminophen (Hydrocodon-Acetaminophn 10-325) 10 Mg-325 Mg Tablet, 1 TAB PO Q4HPRN PRN for pain for 5 Days, #20 TAB 0 Refills 01/29/24 Cholecalciferol (Vitamin D3) (Vitamin D3) 50 Mcg (2000 Unit) Capsule, 1 CAP PO DAILY for 30 Days, #30 CAP 0 Refills 01/29/24 Mycophenolate Mofetil (Cellcept) 500 Mg Tablet, 1 TAB PO BID for 30 Days, #60 TAB 0 Refills 01/29/24 Prednisone (Prednisone) 10 Mg Tablet, 1 TAB PO DAILY for 5 Days, #5 TAB 0 Refills 01/29/24 Diazepam (Diazepam) 2 Mg Tablet, 2 TAB PO HS for anxiety for 30 Days, #60 TAB 0 Refills 01/29/24 Tacrolimus (Tacrolimus) 1 Mg Capsule, 1 MG PO HS, CAP 01/29/24 Tacrolimus (Tacrolimus) 1 Mg Capsule, 2 CAP PO DAILY for 30 Days, #120 CAP 0 Refills 01/29/24 Alprazolam (Alprazolam) 1 Mg Tablet, 1 MG PO TID PRN for ANXIETY, TAB 06/28/23 Discontinued Reported Medications Mycophenolate Mofetil (Mycophenolate Mofetil) 500 Mg Tablet, 2 TAB PO BID 06/30/23 Prednisone (Deltasone/Orasone [Bulk]) 10 Mg Tab, 3 TAB PO DAILY 06/30/23 Tacrolimus Anhydrous (Prograf/Fk-506) 0.5 Mg Cap, 1 CAP PO HS 06/30/23 Tacrolimus Anhydrous (Prograf/Fk-506) 1 Mg Cap, 1 CAP PO DAILY 06/30/23 Hydrocodone/Acetaminophen (Hydrocodon-Acetaminophen 5-325) 5 Mg-325 Mg Tablet, 1 EACH PO QID PRN for PAIN LEVEL 4 TO 6, TAB 06/28/23 Zolpidem Tartrate (Ambien) 10 Mg Tablet, 10 MG PO HS, TAB 06/28/23 Diazepam (Valium) 2 Mg Tablet, 2 MG PO HS, TAB 06/28/23 Pantoprazole Sodium (Protonix) 40 Mg Tablet.dr, 40 MG PO DAILY, TAB 06/28/23 INPATIENT MEDS: Current Medications Medications Dose Ordered Sig/Coral Start Time Stop Time Status Last Admin Sodium Chloride 1,000 ml @ 125 mls/hr Q8H 01/29/24 06:00 02/28/24 05:59 01/29/24 21:16 Pantoprazole Sodium 40 mg BID 01/29/24 09:00 02/28/24 08:59 01/29/24 19:44 Hydromorphone HCl 0.5 mg Q3H PRN 01/29/24 07:30 02/03/24 07:29 01/29/24 21:16 Promethazine HCl 25 mg Q6H PRN 01/29/24 07:30 02/28/24 07:29 01/29/24 19:44 VITAL SIGNS Vital Signs Date Time Temp Pulse Resp B/P (MAP) Pulse Ox O2 Delivery O2 Flow Rate FiO2 01/29/24 20:00 98.6 77 20 117/75 Room Air 01/29/24 19:05 93 Room Air* 0 01/29/24 17:33 80 20 109/67 97 Room Air* 0 01/29/24 13:34 79 20 113/59 95 Room Air* 0 24 10:44 73 22 104/62 97 Room Air* 0 21 01/29/24 07:24 97.9 67 12 112/64 96 Room Air* 0 21 01/29/24 06:31 64 18 100/62 97 Room Air* 0 21 01/29/24 03:44 96.8 72 16 128/81 97 Room Air 0 01/29/24 03:43 96.8 72 16 128/81 97 Room Air* 0 21 PHYSICAL EXAM Initial Vital Sign VS Vital Signs Date Time Temp Pulse Resp B/P (MAP) Pulse Ox O2 Delivery O2 Flow Rate FiO2 01/29/24 03:43 96.8 72 16 128/81 97 Room Air* 0 21 Physical Exam Dictation General: awake, alert, NAD very uncomfortable due to pain in the right lower back area Head/Face: Normocephalic, atraumatic Eyes: PERRL, EOMI, vision at baseline ENT: oral cavity clear, TMs clear, no signs of infection Neck: Trachea midline, supple, no nuchal rigidity Cardiovascular: RRR, normal S1/S2, No MRGs, no JVD Respiratory: CTAB, no respiratory distress, No rales or wheezes Abdomen: Soft, non-tender, non-distended, normal bowel sounds, no guarding or rebound. Skin: Warm, dry, normal turgor, no rash MS/Extremity: Pulses equal, no cyanosis, neurovascular intact, FROM Neuro: COAx4, GCS 15, strength 5/5, CN 2-12 intact, normal cerebellar exam, normal gait, Psych: Normal behavior, mood, and affect normal Extremities-trace edema without any palpable cords, Homans sign is negative LABORATORY RESULTS Laboratory Tests 01/29/24 04:07: White Blood Count 7.1, Red Blood Count 4.13, Hemoglobin 13.0, Hematocrit 37.3, Mean Corpuscular Volume 90.3, Mean Corpuscular Hemoglobin 31.5, Mean Corpuscular Hemoglobin Concent 34.9, Red Cell Distribution Width 12.8, Platelet Count 118, Mean Platelet Volume 10.0, Immature Granulocyte % (Auto) 0.3, Neutrophils (%) (Auto) 65.7, Lymphocytes (%) (Auto) 26.3, Monocytes (%) (Auto) 5.2, Eosinophils (%) (Auto) 1.8, Basophils (%) (Auto) 0.7, Neutrophils # (Auto) 4.7, Lymphocytes # (Auto) 1.9, Monocytes # (Auto) 0.4, Eosinophils # (Auto) 0.13, Basophils # (Auto) 0.05, Absolute Immature Granulocyte (auto 0.02, Nucleated Red Blood Cells 0.0, Prothrombin Time 10.8, Prothromb Time International Ratio 0.96, Activated Partial Thromboplast Time 27.0, Sodium Level 137, Potassium Level 4.1, Chloride Level 102, Carbon Dioxide Level 31, Blood Urea Nitrogen 6, Creatinine 0.6, Glomerular Filtration Rate Calc 117, Random Glucose 97, Total Calcium 9.2, Total Bilirubin 1.3, Direct Bilirubin 0.6, Aspartate Amino Transf (AST/SGOT) 76, Alanine Aminotransferase (ALT/SGPT) 46, Alkaline Phosphatase 368, Total Protein 7.1, Albumin 3.1 01/29/24 04:56: Stool Occult Blood NEGATIVE 01/29/24 06:15: Urine Color LIGHT-YELLOW, Urine Appearance CLOUDY, Urine pH 7.0, Urine Specific [place] 1.006, Urine Protein NEGATIVE, Urine Glucose (UA) NEGATIVE, Urine Ketones NEGATIVE, Urine Occult Blood NEGATIVE, Urine Nitrate NEGATIVE, Urine Bilirubin NEGATIVE, Urine Urobilinogen 0.2, Urine Leukocyte Esterase NEGATIVE, Urine RBC 0-1, Urine WBC 2-5, Urine Squamous Epithelial Cells MOD, Urine Bacteria RARE, Urine Other Casts 1 01/29/24 20:55: Hemoglobin 12.1, Hematocrit 35.3 PROBLEM LIST: (1) Nausea & vomiting ICD Codes: R11.2 - Nausea with vomiting, unspecified (2) Abnormal liver function tests ICD Codes: R79.89 - Other specified abnormal findings of blood chemistry (3) Acute abdominal pain in right upper quadrant ICD Codes: R10.11 - Right upper quadrant pain (4) GI bleed ICD Codes: K92.2 - Gastrointestinal hemorrhage, unspecified (5) Chronic rejection of liver transplant ICD Codes: T86.41 - Liver transplant rejection PLAN Empiric antibiotic IV proton pump inhibitor Consult GI Serial hematocrit monitoring Monitor liver enzymes resume transplant medication DIPAK CRAWLEY MD Jan 29, 2024 22:13
[2024-01-30] VITALS (17 sets, daily range): BP systolic 98–149; BP diastolic 53–81; PULSE 78–105; RESP 15–20; TEMP 97.9–100.2; O2SAT 94
[2024-01-30 06:07] LABS: BASOPHILS # (AUTO) 0.04 K/uL (0.00-0.20); BASOPHILS % (AUTO) 0.5 % (0.0-5.0); EOSINOPHILS # (AUTO) 0.13 K/uL (0.00-0.70); EOSINOPHILS % (AUTO) 1.6 % (0.0-8.0); HEMATOCRIT 36.7 % (36-48); IMMATURE GRANULOCYTE ABSOLUTE 0.03 K/uL (0-1); LYMPHOCYTES # (AUTO) 2.4 K/uL (1.0-4.8); LYMPHOCYTES % (AUTO) 30.2 % (21.0-51.0); MEAN CORPUSCULAR HEMOGLOBIN 31.4 pg (27.0-33.0); MEAN CORPUSCULAR HGB CONC 34.9 g/dL (32.0-36.0); MONOCYTES # (AUTO) 0.5 K/uL (0.1-1.0); MONOCYTES % (AUTO) 6.4 % (3.0-13.0); NEUTROPHILS # (AUTO) 4.9 K/uL (1.8-7.7); NEUTROPHILS % (AUTO) 60.9 % (40.0-77.0); PLATELET COUNT (AUTO) 106 K/uL (130-400); RED BLOOD CELL COUNT(AUTO) 4.08 MIL/uL (4.00-5.50); RED CELL DISTRIBUTION WIDTH 13.2 % (11.0-15.5); WHITE BLOOD COUNT (AUTO) 8.1 K/uL (4.8-10.8)
[2024-01-30 06:32] LABS: ALBUMIN 2.8 g/dL (3.5-5.0); BILIRUBIN,TOTAL 1.7 mg/dL (0.2-1.0); CREATININE 0.7 mg/dL (0.5-1.0); POTASSIUM 3.7 mmol/L (3.5-5.1); TOTAL PROTEIN, SERUM 6.7 g/dL (6.0-8.3)
--- NOTE | 2024-01-30 06:49 | NUR ---
EGD patient taken to Endoscopy at this time. I called rn security to come and filler picker her belongings and put them in a locker inclusing her purse, phone, shoes, home medications.
[2024-01-30 06:58] LABS: INR 0.98 (0.85-1.15)
[2024-01-30 06:59] LABS: PARTIAL THROMBOPLASTIN TIME 25.1 SEC (26.3-35.5)
[2024-01-30] MEDS ORDERED: Solu-medROL 125MG VIAL ONE (07:03)
[2024-01-30] MEDS ORDERED: proPOFol 10 MG/ML 20ML VIAL IV ONE (07:03)
[2024-01-30] MEDS ORDERED: ketaMINE 50MG/ML SYRINGE 50 MG/ML DISP.SYRIN ONE (07:03)
[2024-01-30] MEDS ORDERED: MIDAZOLAM HCL 1 MG/ML 2ML VIAL ONE (07:09)
[2024-01-30] MEDS ORDERED: PoTASSium chloRIDE 20MEQ/100ML 100 ML IV PRN (07:30)
[2024-01-30] MEDS ORDERED: PoTASSium chloRIDE 20MEQ ER 20 MEQ ERTAB PO PRN (07:30)
[2024-01-30] MEDS ORDERED: PoTASSium chl 10% ELIXIR 20MEQ 20 MEQ/15 ML UDCUP PO PRN (07:30)
[2024-01-30] MEDS ORDERED: hydroMORPHone 1 MG INJ ONE (10:13)
[2024-01-30 16:16] LABS: HEMATOCRIT 35.9 % (36-48)
--- NOTE | 2024-01-30 16:30 | NUR ---
TRANSFER TO ROOM 429 PER STRETCHER.
--- NOTE | 2024-01-30 18:11 | NUR ---
TOLERTED DINNER TOLERATED GI SOFT BLAND DIET. PT STATES IS READY FOR D/C HOME.
--- NOTE | 2024-01-30 19:11 | NUR ---
D/C INSTRUCTIONS D/C INSTRUCTIONS GIVEN AND ACKNOWLEDGED. IV REMOVED
--- NOTE | 2024-01-30 22:31 | DS ---
Discharge Summary DIAGNOSE(S): [ugi bleed esophagitis with mild gastritis] HOSPITAL COURSE SUMMARY: [did well w stable hct and no further bleed] LINING FELLER(S): [gi] PROCEDURE(S)/TREATMENT(S): [egd] PROBLEM(S): [] FOLLOW-UP TEST(S): [none] DISCHARGE INSTRUCTIONS: [f/u w pcp 1-2 days] Home Meds Reported Medications Hydrocodone/Acetaminophen (Hydrocodon-Acetaminophn 10-325) 10 Mg-325 Mg Tablet, 1 TAB PO Q4HPRN PRN for pain for 5 Days, #20 TAB 0 Refills 01/29/24 Cholecalciferol (Vitamin D3) (Vitamin D3) 50 Mcg (2000 Unit) Capsule, 1 CAP PO DAILY for 30 Days, #30 CAP 0 Refills 01/29/24 Mycophenolate Mofetil (Cellcept) 500 Mg Tablet, 1 TAB PO BID for 30 Days, #60 TAB 0 Refills 01/29/24 Prednisone (Prednisone) 10 Mg Tablet, 1 TAB PO DAILY for 5 Days, #5 TAB 0 Refills 01/29/24 Diazepam (Diazepam) 2 Mg Tablet, 2 TAB PO HS for anxiety for 30 Days, #60 TAB 0 Refills 01/29/24 Tacrolimus (Tacrolimus) 1 Mg Capsule, 1 MG PO HS, CAP 01/29/24 Tacrolimus (Tacrolimus) 1 Mg Capsule, 2 CAP PO DAILY for 30 Days, #120 CAP 0 Refills 01/29/24 Alprazolam (Alprazolam) 1 Mg Tablet, 1 MG PO TID PRN for ANXIETY, TAB 06/28/23 Discontinued Reported Medications Mycophenolate Mofetil (Mycophenolate Mofetil) 500 Mg Tablet, 2 TAB PO BID 06/30/23 Prednisone (Deltasone/Orasone [Bulk]) 10 Mg Tab, 3 TAB PO DAILY 06/30/23 Tacrolimus Anhydrous (Prograf/Fk-506) 0.5 Mg Cap, 1 CAP PO HS 06/30/23 Tacrolimus Anhydrous (Prograf/Fk-506) 1 Mg Cap, 1 CAP PO DAILY 06/30/23 Hydrocodone/Acetaminophen (Hydrocodon-Acetaminophen 5-325) 5 Mg-325 Mg Tablet, 1 EACH PO QID PRN for PAIN LEVEL 4 TO 6, TAB 06/28/23 Zolpidem Tartrate (Ambien) 10 Mg Tablet, 10 MG PO HS, TAB 06/28/23 Diazepam (Valium) 2 Mg Tablet, 2 MG PO HS, TAB 06/28/23 Pantoprazole Sodium (Protonix) 40 Mg Tablet.dr, 40 MG PO DAILY, TAB 06/28/23 DIPAK CRAWLEY MD Jan 30, 2024 22:31
== END 2024-01-30 19:25 | disposition home or self-care (01) ==
LOC: EDH 03:42 → INTOOBSV 03:43 → EDHIP 03:43 → UNDOADMIN 06:00 → 4AH 01-30 12:15
PROVIDERS: ADMIT Internal Medicine; ATTEND Internal Medicine
DX: K92.2 Gastrointestinal hemorrhage, unspecified (principal); K21.00 Gastro-esophageal reflux disease with esophagitis, without bleeding; D62 Acute posthemorrhagic anemia; R11.2 Nausea with vomiting, unspecified; K75.4 Autoimmune hepatitis; M54.50 Low back pain, unspecified; K76.9 Liver disease, unspecified; R10.11 Right upper quadrant pain; R79.89 Other specified abnormal findings of blood chemistry; Z90.710 Acquired absence of both cervix and uterus; Z79.899 Other long term (current) drug therapy; Z88.8 Allergy status to other drugs, medicaments and biological substances
CPT/HCPCS: 96376 ×2; 96372 ×4; 96361 ×2; 99285; 80076; 80048; 85025 ×2; 85610 ×2; 85730 ×2; 85014 ×2; 85018 ×2; 86850; 86900; 86922; 86901; 86156; 86870; 81001; 36415 ×2; 76705; 96374; 96375; 80053; 84703; 88305; 88312; 43239; J7030 ×2; J2550 ×5; J2470 ×4; J1171 ×8; G0378 ×5; J2919; J2250; J3490 ×2; A4620; A4215; A4606 ×2; 82270; J2704

== ENCOUNTER 2024-04-11 20:53 | Emergency (ER) | payer MEDICAID ==
[~2024-04-11] VITALS: Ht 152.4 cm; Wt 63.0 kg
[~2024-04-11 20:53] MED LIST changes: +CHOL200013 PO; -DIAZ2TAB PO; +DIAZ2TAB3 PO; -HYDR-4060 PO; +HYDR-4068 PO; +MYCO500T PO; -MYCO500T5 PO; -PANT40TA PO; -PRED-775 PO; +PRED10TA3 PO; -TACR.5 PO; -TACR1 PO; +TACR1CAP10 PO; -ZOLP10TA2 PO
--- NOTE | 2024-04-11 21:02 | NUR ---
PT'S PMD PHONE # ([phone]
--- NOTE | 2024-04-11 21:11 | ERN ---
General Chief Complaint: Abdominal Pain Stated Complaint: SENT BY DOCTOR Source: patient History of Present Illness Initial Comments Patient is a 38-year-old female coming in to be evaluated for diarrhea. Per patient he has a she has a history of liver issues and is being monitored by [facility] doctor. Per patient her [place] doctor advised her to follow up with the nearest ER to get laboratory workup performed which includes liver enzymes in sent to them. Allergies: Coded Allergies: ketorolac (Unverified Allergy, Unknown, 06/26/23) ondansetron (Unverified Allergy, Unknown, 06/26/23) tramadol (Unverified Allergy, Unknown, 06/26/23) Home Meds Reported Medications Hydrocodone/Acetaminophen (Hydrocodon-Acetaminophn 10-325) 10 Mg-325 Mg Tablet, 1 TAB PO Q4HPRN PRN for pain for 5 Days, #20 TAB 0 Refills 01/29/24 Cholecalciferol (Vitamin D3) (Vitamin D3) 50 Mcg (2000 Unit) Capsule, 1 CAP PO DAILY for 30 Days, #30 CAP 0 Refills 01/29/24 Mycophenolate Mofetil (Cellcept) 500 Mg Tablet, 1 TAB PO BID for 30 Days, #60 TAB 0 Refills 01/29/24 Prednisone (Prednisone) 10 Mg Tablet, 1 TAB PO DAILY for 5 Days, #5 TAB 0 Refills 01/29/24 Diazepam (Diazepam) 2 Mg Tablet, 2 TAB PO HS for anxiety for 30 Days, #60 TAB 0 Refills 01/29/24 Tacrolimus (Tacrolimus) 1 Mg Capsule, 1 MG PO HS, CAP 01/29/24 Tacrolimus (Tacrolimus) 1 Mg Capsule, 2 CAP PO DAILY for 30 Days, #120 CAP 0 Refills 01/29/24 Alprazolam (Alprazolam) 1 Mg Tablet, 1 MG PO TID PRN for ANXIETY, TAB 06/28/23 Past Medical History Past Medical History: Pancreatitis Medical History Other: ANTI REJECTION MEDS FOR LIVER Past Surgical History: Hysterectomy, Other Surgical History Other: LIVER TRANSPLANT (2008) Family History Family History: Negative Social History Social History: Negative Female( History) History: Not Applicable : 2 Para: 2 Aborts: 0 ROS Dictation CONSTITUTIONAL: No chills, no fever, no weakness, no diaphoresis, no malaise. HEAD/FACE: No signs of trauma. EENT: No eye pain, no blurred vision, no tearing, no double vision, no ear pain, no ear discharge, no nose pain, no nasal congestion, no throat pain, no throat swelling, no mouth pain. RESPIRATORY: No cough, no orthopnea, no SOB, no stridor, no wheezing. CARDIOVASCULAR: No chest pain, no edema, no palpitations, no syncope. GASTROINTESTINAL/ABDOMINAL: No abdominal pain, no constipation, no diarrhea, no nausea, no vomiting. GENITOURINARY: No abnormal discharge, no dysuria, no frequent urination, no hematuria. No complaints of pain in the genitals. MUSCULOSKELETAL: No back pain, no gout, no joint pain, no joint swelling, no muscle pain, no muscle stiffness, no neck pain. INTEGUMENTARY: No change in color, no change in hair/nails, no dryness, no lesion, no lumps, no rash. NEUROLOGICAL/PSYCH: No anxiety, not depressed, no emotional problem, no he adache, no numbness, no pre-existing deficit, no history of seizures, no tremors, no weakness. HEMATOLOGIC/LYMPHATIC: Not anemic, no history of blood clots, no apparent bleeding, no bruising, glands not swollen. All Systems Negative, Except as Noted. Physical Exam Physical Exam Dictation VITAL SIGNS: Reviewed. GENERAL APPEARANCE: Alert, oriented x3, no acute distress, obese. HEAD AND FACE: Non-traumatic. EYES: PERRL, pink conjunctivas, eyelid no trauma, anterior chamber clear. EARS: Pinnas intact and no signs of trauma or erythema. Ear canals clear and no discharge. TMs no erythema. NOSE: No discharge, no bleeding. OROPHARYNX: Mouth normal, teeth no caries, tongue pink. Pharynx clear, no erythema. Tonsils no exudates, no abscesses noted. Mucous membrane moist. NECK: Supple, non-tender, no thyromegaly, no masses, no JVD, no bruits. BREAST: Deferred. CHEST: No tenderness, no crepitus, no paradoxical movement, no retractions. LUNGS: Clear, well-ventilated, symmetric, no rales, no wheezing, no rhonchi, no stridor, good breath sounds bilaterally. HEART: Regular rate, regular rhythm, no murmur, no gallops. VASCULAR: No peripheral edema. ABDOMEN: Soft, positive bowel sounds, nondistended, no guarding, nontender, no rebound, no masses no hepatomegaly, no splenomegaly, no Serrano's sign, no hernias. RECTAL: Deferred. GENITAL: Deferred. NEUROLOGICAL: Normal speech, gross motor function intact, gross sensory function intact. MUSCULOSKELETAL: Neck nontender, full range of motion, back nontender, full range of motion. EXTREMITIES: Nontender, full range of motion. SKIN: Color pink, dry, no turgor, no rash, no lacerations, no abrasions, no contusions. LYMPHATICS: Deferred. Results Laboratory and Microbiology Lab and Micro Result Laboratory Tests Test 04/11/24 21:05 04/11/24 21:10 White Blood Count 6.3 K/uL (4.8-10.8) Red Blood Count 4.24 MIL/uL (4.00-5.50) Hemoglobin 13.1 g/dL (12.0-16.0) Hematocrit 37.3 % (36-48) Mean Corpuscular Volume 88.0 fL (79-99) Mean Corpuscular Hemoglobin 30.9 pg (27.0-33.0) Mean Corpuscular Hemoglobin Concent 35.1 g/dL (32.0-36.0) Red Cell Distribution Width 14.5 % (11.0-15.5) Platelet Count 106 K/uL (130-400) L Mean Platelet Volume 10.1 fL (7.5-10.5) Immature Granulocyte % (Auto) 0.2 % (0-1) Neutrophils (%) (Auto) 63.7 % (40.0-77.0) Lymphocytes (%) (Auto) 27.5 % (21.0-51.0) Monocytes (%) (Auto) 6.8 % (3.0-13.0) Eosinophils (%) (Auto) 1.0 % (0.0-8.0) Basophils (%) (Auto) 0.8 % (0.0-5.0) Neutrophils # (Auto) 4.0 K/uL (1.8-7.7) Lymphocytes # (Auto) 1.7 K/uL (1.0-4.8) Monocytes # (Auto) 0.4 K/uL (0.1-1.0) Eosinophils # (Auto) 0.06 K/uL (0.00-0.70) Basophils # (Auto) 0.05 K/uL (0.00-0.20) Absolute Immature Granulocyte (auto 0.01 K/uL (0-1) Nucleated Red Blood Cells 0.0 % (0.0-0.19) Sodium Level 137 mmol/L (136-145) Potassium Level 3.5 mmol/L (3.5-5.1) Chloride Level 104 mmol/L (101-111) Carbon Dioxide Level 29 mmol/L (21-32) Blood Urea Nitrogen 8 mg/dL (7-18) Creatinine 0.6 mg/dL (0.5-1.0) Glomerular Filtration Rate Calc 117 mL/min (>90) Random Glucose 101 mg/dL (70-105) Total Calcium 9.6 mg/dL (8.5-10.1) Total Bilirubin 1.7 mg/dL (0.2-1.0) H Aspartate Amino Transf (AST/SGOT) 270 U/L (10-37) H Alanine Aminotransferase (ALT/SGPT) 120 U/L (12-78) H Alkaline Phosphatase 662 U/L (50-136) *H Total Creatine Kinase 38 U/L (21-232) Total Protein 7.8 g/dL (6.0-8.3) Albumin 2.9 g/dL (3.5-5.0) L Lipase 64 U/L (16-77) Urine Color YELLOW (YELLOW) Urine Appearance CLOUDY (CLEAR) H Urine pH 7.5 (5.0-8.0) Urine Specific [place] 1.014 (1.001-1.031) Urine Protein NEGATIVE mg/dL (NEGATIVE) Urine Glucose (UA) NEGATIVE mg/dL (NEGATIVE) Urine Ketones NEGATIVE mg/dL (NEGATIVE) Urine Occult Blood NEGATIVE (NEGATIVE) Urine Nitrate NEGATIVE (NEGATIVE) Urine Bilirubin NEGATIVE mg/dL (NEGATIVE) Urine Urobilinogen 3 mg/dL (0.2-1.0) H Urine Leukocyte Esterase NEGATIVE Bessy/uL Labs Reviewed?: Yes MDM MDM: Differential diagnosis: Liver transplant, liver transplant complications, Patient is a 38-year-old female coming in complaining of nauseousness and diarrhea. Patient states that she has been having abdominal discomfort for two days. Patient does have a history of liver transplant and presented with a number for us to call after laboratory workup was performed. Alk-phos was elevated spoke to [facility] transplant specialist Dr. Gustabo Enriquez patient was to drive out the to be admitted for further evaluation. Recommendation was given to patient and she states she will drive there herself. ED Course Orders Procedure Category Date Status Time Cbc With Differential LAB 04/11/24 Complete 20:56 Comprehensive LAB 04/11/24 Complete Metabolic Panel 20:56 Urinalysis Profile LAB 04/11/24 Complete 20:56 Creatine Kinase, Total LAB 04/11/24 Complete 20:56 Lipase LAB 04/11/24 Complete 20:56 Vital Signs Date Time Temp Pulse Resp B/P (MAP) Pulse Ox O2 Delivery O2 Flow Rate FiO2 04/11/24 21:45 98.2 100 16 120/85 98 Room Air* 0 21 04/11/24 20:58 98.2 100 20 124/93 96 Room Air DX & DISP Disposition: Discharge Departure Impression: Primary Impression: Abnormal liver function tests Condition: Stable Additional Instructions: FOLLOW-UP WITH PRIMARY CARE PROVIDER IN 1 TO 2 DAYS. TAKE MEDICATIONS DIRECTED HERE IN THE EMERGENCY ROOM. OKAY TO CONTINUE HOME MEDICATIONS UNLESS OTHERWISE DISCUSSED DURING YOUR VISIT IN THE EMERGENCY ROOM TODAY. RETURN TO YOUR NEAREST EMERGENCY ROOM IF SYMPTOMS WORSEN OR IF THERE IS NO IMPROVEMENT. CALL 911 IF YOU NEED IMMEDIATE ASSISTANCE. TAKE TYLENOL [id number] NEEDED AND IF NO CONTRAINDICATIONS ARE PRESENT. INCREASE ORAL HYDRATION. A WOUND CULTURE OR URINE CULTURE WAS ORDERED HERE IN THE EMERGENCY ROOM DEPARTMENT PLEASE FOLLOW-UP WITH PRIMARY CARE PROVIDER AND ADVISE THEM TO GET REPEAT PORTS FROM OUR FACILITY. IF YOU HAD ANY MARAH WRAP/SPLINTS THAT WERE APPLIED HERE, PLEASE DO NOT REMOVE THEM UNTIL YOU SEE YOUR PRIMARY CARE OR SPECIALTY. Referrals: Referrals: DIPAK CRAWLEY MD (PCP) Time of Disposition: 23:04 ALDO LAZO MD Apr 11, 2024 21:11
[2024-04-11 21:13] LABS: BASOPHILS # (AUTO) 0.05 K/uL (0.00-0.20); BASOPHILS % (AUTO) 0.8 % (0.0-5.0); EOSINOPHILS # (AUTO) 0.06 K/uL (0.00-0.70); HEMATOCRIT 37.3 % (36-48); IMMATURE GRANULOCYTE ABSOLUTE 0.01 K/uL (0-1); LYMPHOCYTES # (AUTO) 1.7 K/uL (1.0-4.8); LYMPHOCYTES % (AUTO) 27.5 % (21.0-51.0); MEAN CORPUSCULAR HEMOGLOBIN 30.9 pg (27.0-33.0); MEAN CORPUSCULAR HGB CONC 35.1 g/dL (32.0-36.0); MONOCYTES # (AUTO) 0.4 K/uL (0.1-1.0); MONOCYTES % (AUTO) 6.8 % (3.0-13.0); NEUTROPHILS % (AUTO) 63.7 % (40.0-77.0); PLATELET COUNT (AUTO) 106 K/uL (130-400); RED BLOOD CELL COUNT(AUTO) 4.24 MIL/uL (4.00-5.50); RED CELL DISTRIBUTION WIDTH 14.5 % (11.0-15.5); WHITE BLOOD COUNT (AUTO) 6.3 K/uL (4.8-10.8)
[2024-04-11 21:19] LABS: CREATININE 0.6 mg/dL (0.5-1.0); POTASSIUM 3.5 mmol/L (3.5-5.1)
[2024-04-11 21:21] LABS: APPEARANCE,URINE CLOUDY (CLEAR); BILIRUBIN,URINE NEGATIVE (NEGATIVE); COLOR,URINE YELLOW (YELLOW); GLUCOSE, URINE (UA) NEGATIVE (NEGATIVE); KETONES,URINE NEGATIVE (NEGATIVE); LEUKOCYTE ESTERASE ,URINE NEGATIVE Leu/uL (NEGATIVE); NITRATE,URINE NEGATIVE (NEGATIVE); OCCULT BLOOD,URINE NEGATIVE (NEGATIVE); PH,URINE 7.5 (5.0-8.0); PROTEIN,URINE NEGATIVE (NEGATIVE); UROBILINOGEN,URINE 3 mg/dL (0.2-1.0)
[2024-04-11 21:22] LABS: ADD UA MICROSCOPIC NO
[2024-04-11 21:32] LABS: ALBUMIN 2.9 g/dL (3.5-5.0); BILIRUBIN,TOTAL 1.7 mg/dL (0.2-1.0); TOTAL PROTEIN, SERUM 7.8 g/dL (6.0-8.3)
[2024-04-11 23:04] VITALS: BP 117/74; PULSE 98; RESP 18; TEMP 98.4; O2SAT 97
== END 2024-04-11 23:12 | disposition home or self-care (01) ==
LOC: EEVIPCON 20:53 → EDH 20:53
DX: R79.89 Other specified abnormal findings of blood chemistry (principal); Z79.52 Long term (current) use of systemic steroids; Z79.621 Long term (current) use of calcineurin inhibitor; Z79.624 Long term (current) use of inhibitors of nucleotide synthesis; Z88.5 Allergy status to narcotic agent; Z90.710 Acquired absence of both cervix and uterus; Z94.4 Liver transplant status
CPT/HCPCS: 36415; 80053; 81003; 82550; 83690; 85025; 99283

== ENCOUNTER → 2024-04-20 | Emergency (ER) | payer MEDICAID ==
[~2024-04-20] VITALS: Ht 152.4 cm; Wt 63.5 kg
--- NOTE | 2024-04-20 10:15 | ERN ---
General Chief Complaint: Abdominal Pain Stated Complaint: EPIGASTRIC PAIN, N/V Time Seen by MD: 09:53 Source: patient History of Present Illness Initial Comments Patient was 38-year-old female coming in to be evaluated for abdominal pain. Patient states he has a extensive history of liver issues and was recently discharged from [facility] after receiving treatment for a liver rejection. She states that shortly after she started having epigastric discomfort. She was here for further evaluation. Allergies: Coded Allergies: ketorolac (Unverified Allergy, Unknown, 06/26/23) ondansetron (Unverified Allergy, Unknown, 06/26/23) tramadol (Unverified Allergy, Unknown, 06/26/23) Home Meds Reported Medications Hydrocodone/Acetaminophen (Hydrocodon-Acetaminophn 10-325) 10 Mg-325 Mg Tablet, 1 TAB PO Q4HPRN PRN for pain for 5 Days, #20 TAB 0 Refills 01/29/24 Cholecalciferol (Vitamin D3) (Vitamin D3) 50 Mcg (2000 Unit) Capsule, 1 CAP PO DAILY for 30 Days, #30 CAP 0 Refills 01/29/24 Mycophenolate Mofetil (Cellcept) 500 Mg Tablet, 1 TAB PO BID for 30 Days, #60 TAB 0 Refills 01/29/24 Prednisone (Prednisone) 10 Mg Tablet, 1 TAB PO DAILY for 5 Days, #5 TAB 0 Refills 01/29/24 Diazepam (Diazepam) 2 Mg Tablet, 2 TAB PO HS for anxiety for 30 Days, #60 TAB 0 Refills 01/29/24 Tacrolimus (Tacrolimus) 1 Mg Capsule, 1 MG PO HS, CAP 01/29/24 Tacrolimus (Tacrolimus) 1 Mg Capsule, 2 CAP PO DAILY for 30 Days, #120 CAP 0 Refills 01/29/24 Alprazolam (Alprazolam) 1 Mg Tablet, 1 MG PO TID PRN for ANXIETY, TAB 06/28/23 Past Medical History Past Medical History: Pancreatitis Medical History Other: ANTI REJECTION MEDS FOR LIVER Past Surgical History: Hysterectomy, Other Surgical History Other: LIVER TRANSPLANT (2008) Family History Family History: Negative Social History Social History: Negative Female( History) History: Not Applicable : 2 Para: 2 Aborts: 0 ROS Dictation CONSTITUTIONAL: No chills, no fever, no weakness, no diaphoresis, no malaise. HEAD/FACE: No signs of trauma. EENT: No eye pain, no blurred vision, no tearing, no double vision, no ear pain, no ear discharge, no nose pain, no nasal congestion, no throat pain, no throat swelling, no mouth pain. RESPIRATORY: No cough, no orthopnea, no SOB, no stridor, no wheezing. CARDIOVASCULAR: No chest pain, no edema, no palpitations, no syncope. GASTROINTESTINAL/ABDOMINAL: abdominal pain, no constipation, no diarrhea, no nausea, no vomiting. GENITOURINARY: No abnormal discharge, no dysuria, no frequent urination, no hematuria. No complaints of pain in the genitals. MUSCULOSKELETAL: No back pain, no gout, no joint pain, no joint swelling, no muscle pain, no muscle stiffness, no neck pain. INTEGUMENTARY: No change in color, no change in hair/nails, no dryness, no lesion, no lumps, no rash. NEUROLOGICAL/PSYCH: No anxiety, not depressed, no emotional problem, no headache, no numbness, no pre-existing deficit, no history of seizures, no tremors, no weakness. HEMATOLOGIC/LYMPHATIC: Not anemic, no history of blood clots, no apparent bleeding, no bruising, glands not swollen. All Systems Negative, Except as Noted. Physical Exam Physical Exam Dictation VITAL SIGNS: Reviewed. GENERAL APPEARANCE: Alert, oriented x3, no acute distress, obese. HEAD AND FACE: Non-traumatic. EYES: PERRL, pink conjunctivas, eyelid no trauma, anterior chamber clear. EARS: Pinnas intact and no signs of trauma or erythema. Ear canals clear and no discharge. TMs no erythema. NOSE: No discharge, no bleeding. OROPHARYNX: Mouth normal, teeth no caries, tongue pink. Pharynx clear, no erythema. Tonsils no exudates, no abscesses noted. Mucous membrane moist. NECK: Supple, non-tender, no thyromegaly, no masses, no JVD, no bruits. BREAST: Deferred. CHEST: No tenderness, no crepitus, no paradoxical movement, no retractions. LUNGS: Clear, well-ventilated, symmetric, no rales, no wheezing, no rhonchi, no stridor, good breath sounds bilaterally. HEART: Regular rate, regular rhythm, no murmur, no gallops. VASCULAR: No peripheral edema. ABDOMEN: Soft, positive bowel sounds, nondistended, no guarding, tender, no rebound, no masses no hepatomegaly, no splenomegaly, no Serrano's sign, no hernias. RECTAL: Deferred. GENITAL: Deferred. NEUROLOGICAL: Normal speech, gross motor function intact, gross sensory function intact. MUSCULOSKELETAL: Neck nontender, full range of motion, back nontender, full range of motion. EXTREMITIES: Nontender, full range of motion. SKIN: Color pink, dry, no turgor, no rash, no lacerations, no abrasions, no contusions. LYMPHATICS: Deferred. Results Laboratory and Microbiology Lab and Micro Result Laboratory Tests Test 04/20/24 11:27 White Blood Count 12.2 K/uL (4.8-10.8) H Red Blood Count 4.42 MIL/uL (4.00-5.50) Hemoglobin 13.7 g/dL (12.0-16.0) Hematocrit 39.9 % (36-48) Mean Corpuscular Volume 90.3 fL (79-99) Mean Corpuscular Hemoglobin 31.0 pg (27.0-33.0) Mean Corpuscular Hemoglobin Concent 34.3 g/dL (32.0-36.0) Red Cell Distribution Width 14.6 % (11.0-15.5) Platelet Count 141 K/uL (130-400) Mean Platelet Volume 9.9 fL (7.5-10.5) Immature Granulocyte % (Auto) 0.2 % (0-1) Neutrophils (%) (Auto) 64.4 % (40.0-77.0) Lymphocytes (%) (Auto) 27.3 % (21.0-51.0) Monocytes (%) (Auto) 6.3 % (3.0-13.0) Eosinophils (%) (Auto) 1.1 % (0.0-8.0) Basophils (%) (Auto) 0.7 % (0.0-5.0) Neutrophils # (Auto) 7.9 K/uL (1.8-7.7) H Lymphocytes # (Auto) 3.3 K/uL (1.0-4.8) Monocytes # (Auto) 0.8 K/uL (0.1-1.0) Eosinophils # (Auto) 0.13 K/uL (0.00-0.70) Basophils # (Auto) 0.09 K/uL (0.00-0.20) Absolute Immature Granulocyte (auto 0.03 K/uL (0-1) Nucleated Red Blood Cells 0.0 % (0.0-0.19) Prothrombin Time 11.4 SEC (9.6-11.6) Prothromb Time International Ratio 1.08 (0.85-1.15) Activated Partial Thromboplast Time 25.4 SEC (26.3-35.5) L Sodium Level 138 mmol/L (136-145) Potassium Level 4.1 mmol/L (3.5-5.1) Chloride Level 103 mmol/L (101-111) Carbon Dioxide Level 31 mmol/L (21-32) Blood Urea Nitrogen 13 mg/dL (7-18) Creatinine 0.6 mg/dL (0.5-1.0) Glomerular Filtration Rate Calc 117 mL/min (>90) Random Glucose 109 mg/dL (70-105) H Total Calcium 9.6 mg/dL (8.5-10.1) Total Bilirubin 2.5 mg/dL (0.2-1.0) H Aspartate Amino Transf (AST/SGOT) 114 U/L (10-37) H Alanine Aminotransferase (ALT/SGPT) 82 U/L (12-78) H Alkaline Phosphatase 636 U/L (50-136) *H Total Creatine Kinase 25 U/L (21-232) # Total Protein 8.4 g/dL (6.0-8.3) H Albumin 3.3 g/dL (3.5-5.0) L Lipase 31 U/L (16-77) Labs Reviewed?: Yes MDM MDM: Differential diagnosis: Rationale: Tests considered and ordered secondary to shared decision making include: Previous outside records reviewed: Old ER visits. Risk of complication and/or morbidity or mortality of patient management: None Medications-Per medication reconciliation Need for hospitalization: Patient does not meet criteria for hospitalization. Need for emergency major/minor surgery: No There are no social concerns with this patient. Prescription drug management Prescriptions will include symptomatic care Patient's prior external medical records from other ER visits were reviewed by me as indicated. Prior testing and results from previous visits were reviewed. Prior tests were taken into account with medical decision making and resource utilization, independent historian/historians were used to obtain complete medical history. I independently interpreted the test that were performed, results were reviewed by me and considered findings on radiology if ordered. Medical management and examination interpretation discussions were had by me with other qualified healthcare professionals as indicated for the patient's care. Was notified by nursing staff that patient eloped without notifying anybody. ED Course Orders Procedure Category Date Status Time Cbc With Differential LAB 04/20/24 Complete 10:11 Comprehensive LAB 04/20/24 Complete Metabolic Panel 10:11 Urinalysis Profile LAB 04/20/24 Logged 10:11 Creatine Kinase, Total LAB 04/20/24 Complete 10:11 Lipase LAB 04/20/24 Complete 10:11 Place Midline Access CPOE 04/20/24 Transmitted 11:08 Pt And Ptt LAB 04/20/24 Complete 11:08 Gabapentin 100 Mg Cap PHA 04/20/24 Complete (Neurontin 100 Mg 11:50 Current Medications Medications (Trade) Dose Ordered Sig/Coral Route PRN Reason Start Time Stop Time Status Last Admin Dose Admin Gabapentin (NEURontin 100 mg CAP) 100 mg ONCE STAT PO 04/20/24 11:50 04/20/24 12:04 DC Vital Signs Date Time Temp Pulse Resp B/P (MAP) Pulse Ox O2 Delivery O2 Flow Rate FiO2 04/20/24 11:04 98.1 100 18 141/84 99 Room Air* 0 21 04/20/24 09:53 98.1 103 18 129/84 97 Room Air 0 DX & DISP Disposition: AMA Departure Impression: Primary Impression: Acute abdominal pain in right upper quadrant Condition: Against Medical Advice Additional Instructions: Was notified by nursing staff the patient eloped without notifying anybody Referrals: DIPAK CRAWLEY MD (PCP) Time of Disposition: 12:34 ALDO LAZO MD Apr 20, 2024 10:14
[2024-04-20 11:04] VITALS: BP 141/84; PULSE 100; RESP 18; TEMP 98.1; O2SAT 99
[2024-04-20 11:37] LABS: BASOPHILS # (AUTO) 0.09 K/uL (0.00-0.20); BASOPHILS % (AUTO) 0.7 % (0.0-5.0); EOSINOPHILS # (AUTO) 0.13 K/uL (0.00-0.70); EOSINOPHILS % (AUTO) 1.1 % (0.0-8.0); HEMATOCRIT 39.9 % (36-48); IMMATURE GRANULOCYTE ABSOLUTE 0.03 K/uL (0-1); LYMPHOCYTES # (AUTO) 3.3 K/uL (1.0-4.8); LYMPHOCYTES % (AUTO) 27.3 % (21.0-51.0); MEAN CORPUSCULAR HGB CONC 34.3 g/dL (32.0-36.0); MEAN CORPUSCULAR VOLUME 90.3 fL (79-99); MONOCYTES # (AUTO) 0.8 K/uL (0.1-1.0); MONOCYTES % (AUTO) 6.3 % (3.0-13.0); NEUTROPHILS # (AUTO) 7.9 K/uL (1.8-7.7); NEUTROPHILS % (AUTO) 64.4 % (40.0-77.0); PLATELET COUNT (AUTO) 141 K/uL (130-400); RED BLOOD CELL COUNT(AUTO) 4.42 MIL/uL (4.00-5.50); RED CELL DISTRIBUTION WIDTH 14.6 % (11.0-15.5); WHITE BLOOD COUNT (AUTO) 12.2 K/uL (4.8-10.8)
[2024-04-20 11:48] LABS: CREATININE 0.6 mg/dL (0.5-1.0); POTASSIUM 4.1 mmol/L (3.5-5.1)
[2024-04-20 11:57] LABS: INR 1.08 (0.85-1.15); PROTHROMBIN TIME 11.4 SEC (9.6-11.6)
--- NOTE | 2024-04-20 11:58 | NUR ---
NURSING NOTE: MULTIPLE ATTEMPTS FOR IV ACCESS, YURIY EDWARDSMANAGER CHINESE NURSE ATTEMPTED NOT SUCCESSFUL, REQUESTED MIDLINE ACCESS WITH ED DR. LAZO. DISSOLVER OPERATOR CALLED TO [facility] [employer] TECHNICIAN PICC NURSE, WAS INFORMED BY MARJORIE HAWKINS, PAGED NURSE ALREADY HE IS ON THE WAY, NOTIFED PT PICC NURSE ON THE WAY. PT IS VERY RESTLESS, PACING ROOM SPOKE TO DR LAZO REQUESTED PAIN MEDICATION (SHOT). DR LAZO ORDER TORADOL, PT STATED SHE HAS AN ALLERGY TO TORADOL, DR LAZO ORDERED GABAPENTIN PO, PT THEN BECAME UPSET REFUSED MEDICATION, STATED SHE CALLED HER FATHER TO PICK HER UP, STATED SHE DID NOT WANT TO WAIT FOR PICC NURSE WILL GO TO ANOTHER HOSPITAL, INFORMED DR LAZO EXPLAINED WE CANNOT GIVE HER ANY OTHER MEDICATION UNTIL WE HAVE AN IV ACCESS. PT STATED AGAIN SHE WANTS TO LEAVE DOES NOT WANT TO WAIT FOR PICC NURSE IF IT TAKES TO LONG. REASSURED HER HE IS ON THE WAY, PT STATED SHE IS LEAVING, HER FATHER IS ON THE WAY.
[2024-04-20 11:59] LABS: PARTIAL THROMBOPLASTIN TIME 25.4 SEC (26.3-35.5)
[2024-04-20 12:01] LABS: ALBUMIN 3.3 g/dL (3.5-5.0); BILIRUBIN,TOTAL 2.5 mg/dL (0.2-1.0); TOTAL PROTEIN, SERUM 8.4 g/dL (6.0-8.3)
[2024-04-20] MEDS: GABApentin 100 MG CAPSULE PO STA (12:07)
--- NOTE | 2024-04-20 12:30 | NUR ---
1215 NURSING NOTE PT IS NOT IN HER ASSIGNED ROOM, NOTED GOWN ON THE CHAIR, NO PERSONAL BELONGINGS IN ROOM, WALKED TO RESTROOM BOTH IN ED DEPT PT WAS NOT IN THERE. WALKED TO ED SHANTI SPOKE TO SUPERINTENDENT DRILLING AND [employer]ODUCTION, ASKED IF PT HAD BEEN SEEN, SECURITY STATED THEY WERE IN A CALL OUTSIDE AND DID NOT SEE PT. ASKED STAFF IF PT HAD WALKED THROUGH [facility] IN ED DEPT NO ONE HAD SEEN HER. NOIFIED DR LAZO PT HAD LEFT W/O NOTIFYING ME OR OTHER STAFF. PER DR LAZO PT HAS ELOPED. 1233 PICC LINE NURSE ARRIVED NOTIFED HIM PT HAS ELOPED. CORNER BLOCK CUTTER NOTIFIED.
== END ==
LOC: EDH 09:51
DX: R10.11 Right upper quadrant pain (principal); Z79.52 Long term (current) use of systemic steroids; Z79.621 Long term (current) use of calcineurin inhibitor; Z79.624 Long term (current) use of inhibitors of nucleotide synthesis; Z88.5 Allergy status to narcotic agent; Z90.710 Acquired absence of both cervix and uterus; Z94.4 Liver transplant status
CPT/HCPCS: 36415; 80053; 82550; 83690; 85025; 85610; 85730; 99284

== ENCOUNTER 2024-08-05 09:56 | Emergency (ER) | payer MEDICAID ==
[~2024-08-05] VITALS: Ht 152.4 cm; Wt 68.0 kg
[2024-08-05] MEDS: LACTATED RINGERS 1000ML 1,000 ML IV ONE (10:37)
--- NOTE | 2024-08-05 10:50 | EKG ---
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
[2024-08-05 11:16] LABS: CREATININE 0.5 mg/dL (0.5-1.0); POTASSIUM 3.6 mmol/L (3.5-5.1)
[2024-08-05 11:21] LABS: BILIRUBIN,TOTAL 1.4 mg/dL (0.2-1.0)
[2024-08-05] MEDS: PROMETHAZINE HCL 25 MG/ML 1ML AMPULE IM ONE (11:27)
[2024-08-05] MEDS: GABApentin 100 MG CAPSULE PO ONE (11:27)
[2024-08-05 11:52] LABS: BASOPHILS # (AUTO) 0.04 K/uL (0.00-0.20); BASOPHILS % (AUTO) 0.5 % (0.0-5.0); EOSINOPHILS # (AUTO) 0.22 K/uL (0.00-0.70); EOSINOPHILS % (AUTO) 2.8 % (0.0-8.0); IMMATURE GRANULOCYTE ABSOLUTE 0.05 K/uL (0-1); LYMPHOCYTES # (AUTO) 3.1 K/uL (1.0-4.8); LYMPHOCYTES % (AUTO) 39.3 % (21.0-51.0); MEAN CORPUSCULAR HEMOGLOBIN 31.2 pg (27.0-33.0); MEAN CORPUSCULAR HGB CONC 35.8 g/dL (32.0-36.0); MONOCYTES # (AUTO) 0.4 K/uL (0.1-1.0); MONOCYTES % (AUTO) 4.9 % (3.0-13.0); NEUTROPHILS # (AUTO) 4.1 K/uL (1.8-7.7); NEUTROPHILS % (AUTO) 51.9 % (40.0-77.0); PLATELET COUNT (AUTO) 106 K/uL (130-400); RED BLOOD CELL COUNT(AUTO) 4.14 MIL/uL (4.00-5.50); RED CELL DISTRIBUTION WIDTH 15.3 % (11.0-15.5); WHITE BLOOD COUNT (AUTO) 7.8 K/uL (4.8-10.8)
--- NOTE | 2024-08-05 13:57 | HMCIMG ---
CT ABDOMEN/PELVIS W/O CONTRAST HISTORY: Right upper quadrant pain COMPARISON: 06/26/2023 TECHNIQUE: Multiple sequential axial images of the abdomen and pelvis were obtained from the dome of the diaphragm through symphysis pubis. Patient was not given contrast through intravenous route. Oral contrast was not given. FINDINGS: No pleural effusion is seen bilaterally. There is no evidence of parenchymal disease or pulmonary nodule of the visualized lower lungs. Degenerative changes of the thoracolumbar spine are present. The heart is not enlarged. The liver is enlarged measuring 18 cm. Postcholecystectomy changes seen. Left intrahepatic biliary air is seen. Spleen is enlarged measuring 13.4 cm. There is intrabiliary stent. The liver, spleen, adrenal glands and pancreas are unremarkable. There is no evidence of hydronephrosis bilaterally. No evidence of renal stone is seen. Fecal material is seen in the colon. There are normal size retroperitoneal and mesenteric lymph nodes. No ascites is seen. Atherosclerotic changes are present. Uterus is not seen. Pelvic sidewalls are symmetric bilaterally. Bladder is well distended without wall thickening. IMPRESSION: 1. Large amount of fecal material is seen in the colon. Left intraperitoneal free air is seen. No ascites seen. Intraoperative stent is seen. CT was performed with one or more following dose reduction techniques: automated exposure control, adjustment of the mA and kv according to patient's size, or use of a iterative reconstruction technique.
--- NOTE | 2024-08-05 14:03 | ERN ---
General Chief Complaint: Abdominal Pain Stated Complaint: ABD PAIN, NAUSEA, WEAKNESS Time Seen by MD: 10:02 Source: patient History of Present Illness Initial Comments PATIENT IS A 38-YEAR-OLD FEMALE COMING IN TO BE EVALUATED FOR ABDOMINAL PAIN. PATIENT STATES THAT SHE HAS A STENT PLACED IN HER COMMON BILE DUCT IN HIS PENDING REMOVAL IN [place] TOMORROW. PATIENT ALSO STATES THAT SHE WAS RECENTLY DISCHARGED FROM [facility] FOR ABDOMINAL DISCOMFORT. Allergies: Coded Allergies: iodine (Unverified Allergy, Unknown, 08/05/24) ketorolac (Unverified Allergy, Unknown, 06/26/23) ondansetron (Unverified Allergy, Unknown, 06/26/23) tramadol (Unverified Allergy, Unknown, 06/26/23) Home Meds Reported Medications Hydrocodone/Acetaminophen (Hydrocodon-Acetaminophn 10-325) 10 Mg-325 Mg Tablet, 1 TAB PO Q4HPRN PRN for pain for 5 Days, #20 TAB 0 Refills 01/29/24 Cholecalciferol (Vitamin D3) (Vitamin D3) 50 Mcg (2000 Unit) Capsule, 1 CAP PO DAILY for 30 Days, #30 CAP 0 Refills 01/29/24 Mycophenolate Mofetil (Cellcept) 500 Mg Tablet, 1 TAB PO BID for 30 Days, #60 TAB 0 Refills 01/29/24 Prednisone (Prednisone) 10 Mg Tablet, 1 TAB PO DAILY for 5 Days, #5 TAB 0 Refills 01/29/24 Diazepam (Diazepam) 2 Mg Tablet, 2 TAB PO HS for anxiety for 30 Days, #60 TAB 0 Refills 01/29/24 Tacrolimus (Tacrolimus) 1 Mg Capsule, 1 MG PO HS, CAP 01/29/24 Tacrolimus (Tacrolimus) 1 Mg Capsule, 2 CAP PO DAILY for 30 Days, #120 CAP 0 Refills 01/29/24 Alprazolam (Alprazolam) 1 Mg Tablet, 1 MG PO TID PRN for ANXIETY, TAB 06/28/23 Past Medical History Past Medical History: Pancreatitis Medical History Other: ANTI REJECTION MEDS FOR LIVER Past Surgical History: Hysterectomy, Other Surgical History Other: LIVER TRANSPLANT (2008) Family History Family History: Negative Social History Social History: Negative Female( History) History: Not Applicable : 2 Para: 2 Aborts: 0 ROS Dictation CONSTITUTIONAL: NO CHILLS, NO FEVER, NO WEAKNESS, NO DIAPHORESIS, NO MALAISE. HEAD/FACE: NO SIGNS OF TRAUMA. EENT: NO EYE PAIN, NO BLURRED VISION, NO TEARING, NO DOUBLE VISION, NO EAR PAIN, NO EAR DISCHARGE, NO NOSE PAIN, NO NASAL CONGESTION, NO THROAT PAIN, NO THROAT SWELLING, NO MOUTH PAIN. RESPIRATORY: NO COUGH, NO ORTHOPNEA, NO SOB, NO STRIDOR, NO WHEEZING. CARDIOVASCULAR: NO CHEST PAIN, NO EDEMA, NO PALPITATIONS, NO SYNCOPE. GASTROINTESTINAL/ABDOMINAL: ABDOMINAL PAIN, NO CONSTIPATION, NO DIARRHEA, NO NAUSEA, NO VOMITING. GENITOURINARY: NO ABNORMAL DISCHARGE, NO DYSURIA, NO FREQUENT URINATION, NO HEMATURIA. NO COMPLAINTS OF PAIN IN THE GENITALS. MUSCULOSKELETAL: NO BACK PAIN, NO GOUT, NO JOINT PAIN, NO JOINT SWELLING, NO MUSCLE PAIN, NO MUSCLE STIFFNESS, NO NECK PAIN. INTEGUMENTARY: NO CHANGE IN COLOR, NO CHANGE IN HAIR/NAILS, NO DRYNESS, NO LESION, NO LUMPS, NO RASH. NEUROLOGICAL/PSYCH: NO ANXIETY, NOT DEPRESSED, NO EMOTIONAL PROBLEM, NO HEADACHE, NO NUMBNESS, NO PRE-EXISTING DEFICIT, NO HISTORY OF SEIZURES, NO TREMORS, NO WEAKNESS. HEMATOLOGIC/LYMPHATIC: NOT ANEMIC, NO HISTORY OF BLOOD CLOTS, NO APPARENT BLEEDING, NO BRUISING, GLANDS NOT SWOLLEN. ALL SYSTEMS NEGATIVE, EXCEPT NOTED. Physical Exam Physical Exam Dictation VITAL SIGNS: REVIEWED. GENERAL APPEARANCE: ALERT, ORIENTED X3, NO ACUTE DISTRESS, OBESE. HEAD AND FACE: NON-TRAUMATIC. EYES: PERRL, PINK CONJUNCTIVAS, EYELID NO TRAUMA, ANTERIOR CHAMBER CLEAR. EARS: PINNAS INTACT AND NO SIGNS OF TRAUMA OR ERYTHEMA. EAR CANALS CLEAR AND NO DISCHARGE. TMS NO ERYTHEMA. NOSE: NO DISCHARGE, NO BLEEDING. OROPHARYNX: MOUTH NORMAL, TEETH NO CARIES, TONGUE PINK. PHARYNX CLEAR, NO ERYTHEMA. TONSILS NO EXUDATES, NO ABSCESSES NOTED. MUCOUS MEMBRANE MOIST. NECK: SUPPLE, NON-TENDER, NO THYROMEGALY, NO MASSES, NO JVD, NO BRUITS. BREAST: DEFERRED. CHEST: NO TENDERNESS, NO CREPITUS, NO PARADOXICAL MOVEMENT, NO RETRACTIONS. LUNGS: CLEAR, WELL-VENTILATED, SYMMETRIC, NO RALES, NO WHEEZING, NO RHONCHI, NO STRIDOR, GOOD BREATH SOUNDS BILATERALLY. HEART: REGULAR RATE, REGULAR RHYTHM, NO MURMUR, NO GALLOPS. VASCULAR: NO PERIPHERAL EDEMA. ABDOMEN: SOFT, POSITIVE BOWEL SOUNDS, NONDISTENDED, NO GUARDING, GENERALIZED TENDER, NO REBOUND, NO MASSES NO HEPATOMEGALY, NO SPLENOMEGALY, NO PERAZA'S SIGN, NO HERNIAS. RECTAL: DEFERRED. GENITAL: DEFERRED. NEUROLOGICAL: NORMAL SPEECH, GROSS MOTOR FUNCTION INTACT, GROSS SENSORY FUNCTION INTACT. MUSCULOSKELETAL: NECK NONTENDER, FULL RANGE OF MOTION, BACK NONTENDER, FULL RANGE OF MOTION. EXTREMITIES: NONTENDER, FULL RANGE OF MOTION. SKIN: COLOR PINK, DRY, NO TURGOR, NO RASH, NO LACERATIONS, NO ABRASIONS, NO CONTUSIONS. LYMPHATICS: DEFERRED. Results Laboratory and Microbiology Lab and Micro Result Laboratory Tests Test 08/05/24 10:56 08/05/24 11:45 08/05/24 15:38 Sodium Level 138 mmol/L (136-145) Potassium Level 3.6 mmol/L (3.5-5.1) Chloride Level 103 mmol/L (101-111) Carbon Dioxide Level 29 mmol/L (21-32) Blood Urea Nitrogen 11 mg/dL (7-18) Creatinine 0.5 mg/dL (0.5-1.0) Glomerular Filtration Rate Calc 122 mL/min (>90) Random Glucose 100 mg/dL (70-105) Total Calcium 8.8 mg/dL (8.5-10.1) Total Bilirubin 1.4 mg/dL (0.2-1.0) H Aspartate Amino Transf (AST/SGOT) 60 U/L (10-37) H Alanine Aminotransferase (ALT/SGPT) 58 U/L (12-78) Alkaline Phosphatase 445 U/L (50-136) H Total Protein 7.0 g/dL (6.0-8.3) Albumin 3.0 g/dL (3.5-5.0) L Lipase 49 U/L (16-77) White Blood Count 7.8 K/uL (4.8-10.8) Red Blood Count 4.14 MIL/uL (4.00-5.50) Hemoglobin 12.9 g/dL (12.0-16.0) Hematocrit 36.0 % (36-48) Mean Corpuscular Volume 87.0 fL (79-99) Mean Corpuscular Hemoglobin 31.2 pg (27.0-33.0) Mean Corpuscular Hemoglobin Concent 35.8 g/dL (32.0-36.0) Red Cell Distribution Width 15.3 % (11.0-15.5) Platelet Count 106 K/uL (130-400) L Mean Platelet Volume 10.5 fL (7.5-10.5) Immature Granulocyte % (Auto) 0.6 % (0-1) Neutrophils (%) (Auto) 51.9 % (40.0-77.0) Lymphocytes (%) (Auto) 39.3 % (21.0-51.0) Monocytes (%) (Auto) 4.9 % (3.0-13.0) Eosinophils (%) (Auto) 2.8 % (0.0-8.0) Basophils (%) (Auto) 0.5 % (0.0-5.0) Neutrophils # (Auto) 4.1 K/uL (1.8-7.7) Lymphocytes # (Auto) 3.1 K/uL (1.0-4.8) Monocytes # (Auto) 0.4 K/uL (0.1-1.0) Eosinophils # (Auto) 0.22 K/uL (0.00-0.70) Basophils # (Auto) 0.04 K/uL (0.00-0.20) Absolute Immature Granulocyte (auto 0.05 K/uL (0-1) Nucleated Red Blood Cells 0.0 % (0.0-0.19) Serum Test, Qualitative NEGATIVE (NEGATIVE) Urine Color LIGHT-YELLOW (YELLOW) Urine Appearance CLOUDY (CLEAR) H Urine pH 7.5 (5.0-8.0) Urine Specific [place] 1.013 (1.001-1.031) Urine Protein NEGATIVE mg/dL (NEGATIVE) Urine Glucose (UA) NEGATIVE mg/dL (NEGATIVE) Urine Ketones NEGATIVE mg/dL (NEGATIVE) Urine Occult Blood NEGATIVE (NEGATIVE) Urine Nitrate NEGATIVE (NEGATIVE) Urine Bilirubin NEGATIVE mg/dL (NEGATIVE) Urine Urobilinogen 2.0 mg/dL (0.2-1.0) H Urine Leukocyte Esterase NEGATIVE Bessy/uL Urine RBC 2-5 /HPF (0-1) H Urine WBC 2-5 /HPF (0-1) H Urine Squamous Epithelial Cells MANY /HPF (0-2) Urine Bacteria None /HPF (None Seen) Urine HCG, Qualitative NEGATIVE (NEGATIVE) Labs Reviewed?: Yes EKG/XRAY/US/CT/MRI EKG Comment 08/05/2024 TIME 10:40 A.M. VENTRICULAR RATE 97 SINUS RHYTHM DC [address] WAVE ELEVATION OR DEPRESSION CT Scan Comment IMAGING REPORT Signed PATIENT: CHYNA RAINEY MR#: [id number] : 1985 SEX: F AGE: 38 LOCATION: [facility] ORDER [id number] STATUS: REG ER REPORT#: [id number] SERVICE 1308 REASON: RUQ PAIN ORDERING PHYSICIAN: ALDO LAZO MD PROCEDURE: ABD PEL WO - CT ABDOMEN/PELVIS W/O CONTRAST CT ABDOMEN/PELVIS W/O CONTRAST HISTORY: Right upper quadrant pain COMPARISON: 06/26/2023 TECHNIQUE: Multiple sequential axial images of the abdomen and pelvis were obtained from the dome of the diaphragm through symphysis pubis. Patient was not given contrast through intravenous route. Oral contrast was not given. FINDINGS: No pleural effusion is seen bilaterally. There is no evidence of parenchymal disease or pulmonary nodule of the visualized lower lungs. Degenerative changes of the thoracolumbar spine are present. The heart is not enlarged. The liver is enlarged measuring 18 cm. Postcholecystectomy changes seen. Left intrahepatic biliary air is seen. Spleen is enlarged measuring 13.4 cm. There is intrabiliary stent. The liver, spleen, adrenal glands and pancreas are unremarkable. There is no evidence of hydronephrosis bilaterally. No evidence of renal stone is seen. Fecal material is seen in the colon. There are normal size retroperitoneal and mesenteric lymph nodes. No ascites is seen. Atherosclerotic changes are present. Uterus is not seen. Pelvic sidewalls are symmetric bilaterally. Bladder is well distended without wall thickening. IMPRESSION: 1. Large amount of fecal material is seen in the colon. Left intraperitoneal free air is seen. No ascites seen. Intraoperative stent is seen. CT was performed with one or more following dose reduction techniques: automated exposure control, adjustment of the mA and kv according to patient's size, or use of a iterative reconstruction technique. DICTATED BY: CLAUDINE SEQUEIRA MD DATE: 08/05/24 1350 ELECTRONICALLY SIGNED BY: CLAUDINE SEQUEIRA MD DATE: 08/05/24 7261 MDM MDM: DIFFERENTIAL DIAGNOSIS: SURGICAL COMPLICATION, INTRAPERITONEAL AIR, HISTORY OF BILIARY DUCT STENT PLACEMENT RATIONALE: TESTS CONSIDERED AND ORDERED SECONDARY TO SHARED DECISION MAKING IN CLUDE: LABS, ECG AND RADIOLOGY PREVIOUS OUTSIDE RECORDS REVIEWED: OLD ER VISITS. RISK OF COMPLICATION AND/OR MORBIDITY OR MORTALITY OF PATIENT MANAGEMENT: NONE MEDICATIONS-PER MEDICATION RECONCILIATION NEED FOR HOSPITALIZATION: PATIENT DOES MEET CRITERIA FOR HOSPITALIZATION. NEED FOR EMERGENCY MAJOR/MINOR SURGERY: NO THERE ARE NO SOCIAL CONCERNS WITH THIS PATIENT. PRESCRIPTION DRUG MANAGEMENT PRESCRIPTIONS WILL INCLUDE SYMPTOMATIC CARE PATIENT'S PRIOR EXTERNAL MEDICAL RECORDS FROM OTHER ER VISITS WERE REVIEWED BY ME INDICATED. PRIOR TESTING AND RESULTS FROM PREVIOUS VISITS WERE REVIEWED. PRIOR TESTS WERE TAKEN INTO ACCOUNT WITH MEDICAL DECISION MAKING AND RESOURCE UTILIZATION, INDEPENDENT HISTORIAN/HISTORIANS WERE USED TO OBTAIN COMPLETE MEDICAL HISTORY. I INDEPENDENTLY INTERPRETED THE TEST THAT WERE PERFORMED, RESULTS WERE REVIEWED BY ME AND CONSIDERED FINDINGS ON RADIOLOGY IF ORDERED. MEDICAL MANAGEMENT AND EXAMINATION INTERPRETATION DISCUSSIONS WERE HAD BY ME WITH OTHER QUALIFIED HEALTHCARE PROFESSIONALS INDICATED FOR THE PATIENT'S CARE. SPOKE TO DR. LOPEZ SURGEON ON-CALL WHO STATES THAT HE WOULD BE OKAY TO BE CONSULTED. SPOKE TO GI FACILITY THEY ARE OKAY TO CONSULT PATIENT. DUE TO THE FREE INTRAPERITONEAL AIR WHICH COULD HAVE BEEN A COMPLICATION OF THE INITIAL STENT PLACEMENT PATIENT WILL BE TRANSFERRED TO [facility] FOR ONGOING EVALUATION AND MANAGEMENT. [facility] ED Course Orders Procedure Category Date Status Time Comprehensive LAB 08/05/24 Complete Metabolic Panel 10:17 ,Urine Test LAB 08/05/24 Complete 10:17 Urinalysis Profile LAB 08/05/24 Complete 10:17 12 Lead Ekg Tracing- EKG 08/05/24 Resulted Technical 10:17 Lactated Ringers PHA 08/05/24 Complete 1000ml (Lactated 10:30 Lipase LAB 08/05/24 Complete 10:17 Gabapentin 100 Mg Cap PHA 08/05/24 Complete (Neurontin 100 Mg 11:30 Promethazine Hcl PHA 08/05/24 Complete (Phenergan) 11:30 Cbc With Differential LAB 08/05/24 Complete 11:25 Testing, LAB 08/05/24 Complete Serum Hcg 12:57 Ct Abdomen/Pelvis W/O CT 08/05/24 Resulted Contrast 13:08 Morphine 2mg Syg PHA 08/05/24 Complete (Morphine 2mg Syg) 15:30 *Nursing CPOE 08/05/24 Transmitted Communication: 16:13 Zosyn 3.375gm+Ns 50ml PHA 08/05/24 Complete (Zosyn 3.375gm+Ns 17:30 Current Medications Medications (Trade) Dose Ordered Sig/Coral Route PRN Reason Start Time Stop Time Status Last Admin Dose Admin Gabapentin (NEURontin 100 mg CAP) 100 mg ONCE ONCE PO 08/05/24 11:30 08/05/24 11:31 DC 08/05/24 11:27 Lactated Ringer's 1,000 ml @ 0 mls/hr ONCE ONCE IV 08/05/24 10:30 08/05/24 10:31 DC 08/05/24 10:37 Morphine Sulfate (morPHINE 2MG SYG) 2 mg ONCE ONCE IVP 08/05/24 15:30 08/05/24 15:31 DC 08/05/24 15:30 Piperacillin Sod/ Tazobactam Sod (Zosyn 3.375gm+NS 50ml) 3.375 gm ONCE ONCE IV 08/05/24 17:30 08/05/24 17:31 DC Promethazine HCl (Phenergan) 25 mg ONCE ONCE IM 08/05/24 11:30 08/05/24 11:31 DC 08/05/24 11:27 Vital Signs Date Time Temp Pulse Resp B/P (MAP) Pulse Ox O2 Delivery O2 Flow Rate FiO2 08/05/24 15:38 99.3 109 18 141/81 97 Room Air* 0 08/05/24 11:39 99.1 98 13 141/91 99 Room Air* 0 08/05/24 11:20 98.8 101 21 141/91 98 Room Air* 0 08/05/24 09:59 98.8 104 16 122/98 96 Room Air* 0 08/05/24 09:59 98.8 104 16 122/98 96 Room Air 0 DX & DISP Disposition: Transfer Departure Impression: Primary Impression: Free intraperitoneal air Additional Impressions: Chronic rejection of liver transplant, Status post liver transplant, Abnormal liver function tests Condition: Stable Referrals: DIPAK CRAWLEY MD (PCP) ALDO LAZO MD Aug 05, 2024 14:03
[2024-08-05] MEDS: morPHINE 2 MG SYG IVP ONE (15:30)
[2024-08-05 15:54] LABS: APPEARANCE,URINE CLOUDY (CLEAR); BILIRUBIN,URINE NEGATIVE (NEGATIVE); COLOR,URINE LIGHT-YELLOW (YELLOW); GLUCOSE, URINE (UA) NEGATIVE (NEGATIVE); KETONES,URINE NEGATIVE (NEGATIVE); LEUKOCYTE ESTERASE ,URINE NEGATIVE Leu/uL (NEGATIVE); NITRATE,URINE NEGATIVE (NEGATIVE); OCCULT BLOOD,URINE NEGATIVE (NEGATIVE); PH,URINE 7.5 (5.0-8.0); PROTEIN,URINE NEGATIVE (NEGATIVE)
[2024-08-05 15:56] LABS: HCG,QUALITATIVE URINE NEGATIVE (NEGATIVE)
[2024-08-05 15:57] LABS: ADD UA MICROSCOPIC YES
[2024-08-05 15:59] LABS: MUCUS,URINE RARE LPF (None Seen); SQUAMOUS EPITHELIAL CELL,UR MANY /HPF (0-2)
--- NOTE | 2024-08-05 16:40 | NUR ---
TRANSFER REQUEST TO [facility] FOR ABD PAIN LIVER STRANSPLANT WITH STENT PER DR LAZO. LESLYE RN
--- NOTE | 2024-08-05 17:07 | NUR ---
TRANSFER CALL PLACE TO [facility] [phone] SPOKE WITH GLO AND INFORMATION PROVIDED WILL CALL BACK. LESLYE EDWARDS
--- NOTE | 2024-08-05 18:25 | NUR ---
TRANSFER MET WITH PT CONSENT SIGN FOR TRANSFER INFORM PENDING ACCEPTANCE AND EMS VERBLIZED UNDERSTANDING. LESLYE EDWARDS
--- NOTE | 2024-08-05 18:48 | NUR ---
TRANSFER INTAKE NURSE CALL BACK WITH ACCEPTANCE UNDERS DR MIRZA HAMMER AT 1756 TO ROOM 322 AND PRIMARY NURSE TO CALL REPORT TO [phone] AND EMS WHEN READY, LESLYE EDWARDS
[2024-08-05] MEDS: ZOSYN 3.375GM +NS 50ML IV ONE (19:53)
--- NOTE | 2024-08-05 20:35 | NUR ---
[facility] NOTIFIED OF TRANSFER
[2024-08-05] MEDS: hydroMORPHone 1 MG INJ IVP ONE (22:04)
--- NOTE | 2024-08-06 01:11 | NUR ---
CALLED [facility] FOR UPDATE ON ETA. NO ETA PROVIDED.
--- NOTE | 2024-08-06 01:48 | NUR ---
ANSWERED CALL FROM [facility]. GAVE REPORT ON PT. PER [facility], ETA [phone] TODAY.
[2024-08-06] MEDS: hydroMORPHone 1 MG INJ IVP ONE (02:43)
--- NOTE | 2024-08-06 03:30 | NUR ---
REPORT GIVEN TO CHANA EDWARDS AT [employer] [facility]
[2024-08-06] MEDS: Solu-medROL 125MG VIAL ONE (04:42)
[2024-08-06] MEDS: DiphenhydrAMINE HCL 50 MG/ML VIAL ONE (04:42)
[2024-08-06] MEDS: DiphenhydrAMINE HCL 50 MG/ML VIAL IV ONE (04:47)
--- NOTE | 2024-08-06 04:47 | NUR ---
PT EXPERIENCED HIVES AND RASH AT SITES OF TELEMETRY STICKERS DUE TO ADHESIVE. DR BEASLEY NOTIFIED, ORDERS RECIEVED.
[2024-08-06] MEDS: Solu-medROL 40MG VIAL IVP ONE (04:54)
[2024-08-06] MEDS: PROMETHAZINE HCL 25 MG/ML 1ML AMPULE IM ONE (07:18)
[2024-08-06 07:47] VITALS: BP 123/82; PULSE 97; RESP 18; TEMP 98.3; O2SAT 96
--- NOTE | 2024-08-06 07:56 | NUR ---
REPORT GIVEN TO [facility] ADMINISTRATIVE CLERK. PT LEFT FOR [facility] (RM [id number])
== END 2024-08-06 07:58 | disposition short-term general hospital (02) ==
LOC: EDH 09:56
DX: T86.41 Liver transplant rejection (principal); R79.89 Other specified abnormal findings of blood chemistry; Z79.52 Long term (current) use of systemic steroids; Z79.621 Long term (current) use of calcineurin inhibitor; Z79.624 Long term (current) use of inhibitors of nucleotide synthesis; Z88.5 Allergy status to narcotic agent; Z88.8 Allergy status to other drugs, medicaments and biological substances; Z90.710 Acquired absence of both cervix and uterus
CPT/HCPCS: 99285; 74176; 96365; 96361; 96375 ×2; 96366; 80053; 84703; 83690; 85025; 81001; 81025; 36415; 93005; 96372 ×2; 96376; J7120; J1171 ×2; J2270; J2550 ×2; J2543; J2919; J1200